=== PATIENT | female | born 1940 | race Hispanic/Latino ===

== ENCOUNTER 2018-10-30 15:11 | Emergency (ER) | payer MEDICARE ==
[~2018-10-30] VITALS: Ht 157.5 cm; Wt 84.8 kg
[~2018-10-30 15:11] MED LIST: ACTONEL35 MG PO; ALPRAZOLAM0.5 MG PO; ASPIR-LOW81 MG PO; BACLOFEN10 MG PO; CITALOPRAM HBR20 MG PO; COLACE100 MG PO; DIOVAN160 MG PO; FERROUS SULFAT325 MG PO; GABAPENTIN300 MG PO; GLIPIZIDE-METF1 EAC2 PO; Insulin Detemir SQ; LANTUS 3ML100 UNITS/ SC; LANTUS 3ML100 UNITS/ SQ; LEVOTHYROXINE112 MCG PO; LORATADINE10 MG PO; LOVENOX40 MG/0.4 SC; LYRICA50 MG PO; OMEPRAZOLE20 M1 PO; PRIMIDONE50 MG PO; SIMVASTATIN10 MG PO; SIMVASTATIN40 MG PO; VITAMIN D10000 UNIT PO
--- OUTSIDE RECORDS SUMMARY | 2018-10-30 15:15 | XMS REPORT | Continuity of Care Document ---
Author Author [facility] Interface Address Unknown Phone Unavailable Problems Problem Status Onset Date Classification Date Reported Comments Source Encounter for screening mammogram for malignant neoplasm of breast 11/12/2017 02/11/2018 JONATHAN Molinaadena Z12.31 - ENCNTR SCREEN MAMMOGRAM FOR MA Active 10/13/2017 JONATHAN Molinaadena M81.0 - AGE-RELATED OSTEOPOROSIS W/O C Active 08/27/2016 JONATHAN Josea Discharge Diagnosis: Atypical chest pain 09/11/2014 09/13/2014 [facility] Discharge Diagnosis: Cough 09/11/2014 09/13/2014 [facility] DIABETIC/BLURRY VISION/CHEST PAIN Active 09/11/2014 [facility] Age-related osteoporosis Active Problem 02/11/2018 JONATHAN Isabel,[facility] BP+ - Hypertension Active Problem 02/11/2018 JONATHAN Isabel,[facility] Comminuted fracture of patella Active Problem 02/11/2018 JONATHAN [place],[facility] DM II [Diabetes mellitus type II] Active Problem 02/11/2018 JONATHAN [place] Hyperlipidemia Active Problem 02/11[facility] Age-related [facility] without current pathological fracture 02/11/2018 NATALYAD [place] Asymptomatic menopausal state 02/11/2018 NATALYAD [place] DM II [Diabetes mellitus type II] Active Problem 09/13/2014 [facility] Medications Medication Details Route Status Patient Instructions Ordering Provider Order Date Source aspirin 325 mg, 1 tab, Route: PO, Drug form: TAB, ONCE, Dosing Weight 71.818, kg, Priority: STAT, Start date: 09/11/14 20:19:00, Stop date: 09/11/14 20:19:00Notes: Take with food. Inactive 09/12/2014 [facility] Saline Flush 0.9% 10 mL, Route: IVP, Drug Form: INJ, Dosing Weight 71.818, kg, PRN, PRN Line Flush, Start date: 09/11/14 19:14:00, Duration: 30 day, Stop date: 10/11/14 19:13:00Notes: (Same as: BD Posiflush) No Longer Active 09/12/2014 [facility] Allergies, Adverse Reactions, Alerts Substance Category Reaction Severity Reaction type Status Date Reported Comments Source penicillins Assertion Drug allergy Active JONATHAN Isabel Immunizations Immunization Date Given Site Status Last Updated Comments Source pneumococcal 23-valent vaccine 07/03/2013 Left deltoid completed Eko [facility] Results Order Name Results Value Reference Range Date Interpretation Comments Source Bone Density DXA [employer] MA Bone Density DXA [employer] MA BONE DENSITY ASSESSMENT: 11/05/2017 CLINICAL DATA: Post menopausal. M81.0 Age-Related Osteoporosis Without Current Pathological Fracture/M81.0 Age-Related Osteoporosis Without Current Pathological Fracture FINDINGS: Bone density evaluation was performed 11/05/2017 on the left femur neck using a Hologic unit. The BMD average for the exam is 0.689 g/cm2. The T-score is -1.40 and the Z-score is 0.50. This matches the World Health Organization's criteria for osteopenia and places the patient at a medium risk for fracture. An additional bone density evaluation was performed 11/05/2017 on the left hip using a Hologic unit. The BMD average for the exam is 0.769 g/cm2. The T-score is -1.40 and the Z-score is 0.40. This matches the World Health Organization's criteria for osteopenia and places the patient at a medium risk for fracture. An additional bone density evaluation was performed 11/05/2017 on the AP L1-L4 region of spine using a Hologic unit. The BMD average for the exam is 0.729 g/cm2. The T-score is -2.90 and the Z-score is -0.40. This matches the World Health Organization's criteria for osteoporosis and places the patient at a high risk for fracture. IMPRESSION: OSTEOPOROSIS Patient is at high risk for fracture. This exam was interpreted at [id number] at [facility]. Edgar Napoles M.D., jp/enriqueta:11/05/2017 13:28:25 Event Decorator And Designer(s): Sintia ALBERTS)(Jojo), [facility] 11/05/2017 - - Read by: Edgar Napoles MD Dictated Date/time: 11/05/17 13:28 Electronically Signed by: Edgar Napoles MD 11/05/17 13:28 FINAL REPORT ADILENE Isabel Breast Mammo Scrn CARLO incl CAD MA Breast Mammo Scrn CARLO incl CAD MA BILATERAL DIGITAL SCREENING MAMMOGRAM WITH CAD: 11/05/2017 CLINICAL: Z12.31 Encounter For Screening Mammogram For Malignant Neoplasm Of Breast/Z12.31 Encounter For Screening Mammogram For Malignant Neoplasm Of Breast. Current study was evaluated with a Computer Aided Detection (CAD) system. COMPARISON:Comparison is made to exams dated: 09/18/2015 mammogram, 06/17/2013 mammogram, and 09/30/2016 mammogram - [facility]. TECHNIQUE: Mammographic views were obtained using digital acquisition. Current study was also evaluated with a Computer Aided Detection (CAD) system. FINDINGS: There are scattered fibroglandular densities in both breasts. No significant masses, calcifications, or other findings are seen in either breast. There has been no significant interval change. IMPRESSION: NEGATIVE RECOMMENDATION:There is no mammographic evidence of malignancy. A 1 year screening mammogram is recommended.(11/06/2018) This exam was interpreted at [id number] at [facility] Location. Professional services are provided by the [facility]. Krystal Suggs M.D. th/penrad:11/05/2017 18:30:05 Event Decorator And Designer(s): RT Saniya(R)(M), [facility] letter sent: BI-RADS 1/2 Mammogram BI-RADS: 1 Negative 11/05/2017 - - Read by: Krystal Suggs MD Dictated Date/time: 11/05/17 18:30 Electronically Signed by: Krystal Suggs MD 11/05/17 18:30 FINAL REPORT ADILENE Isabel Bone Density DXA Dual Energy MA Bone Density DXA Dual Energy MA - Bone Density DXA Dual Energy MA BONE DENSITY EVALUATION: 09/30/2016 CLINICAL DATA: Post menopausal. RISK FACTORS: History of previous fracture. COMPARISON: 09/18/2015 Left hip using a Hologic unit from [facility] with reported medium fracture risk, BMD of 0.756g/cm2, T-score of -1.50 and Z-score of 0.20. 09/18/2015 AP L1-L4 region of spine using a Hologic unit from [facility] with reported high fracture risk, BMD of 0.703g/cm2, T-score of -3.10 and Z-score of -0.80. FINDINGS: Bone density evaluation was performed 09/30/2016 on the AP L1-L4 region of spine using a Hologic unit. The BMD average for the exam is 0.714 g/cm2. The T-score is -3.00 and the Z-score is -0.60. Since the previous similar exam of 09/18/2015, there has been a +0.011 or +1.6% change in the BMD value which represents no significant interval change in bone density. This matches the World Health Organization's criteria for osteoporosis and places the patient at a high risk for fracture. An additional bone density evaluation was performed 09/30/2016 on the left femur neck using a Hologic unit. The BMD average for the exam is 0.688 g/cm2. The T- score is -1.40 and the Z-score is 0.50. This matches the World Health Organization's criteria for osteopenia and places the patient at a medium risk for fracture. An additional bone density evaluation was performed 09/30/2016 on the left hip using a Hologic unit. The BMD average for the exam is 0.776 g/cm2. The T-score is -1.40 and the Z-score is 0.40. Since the previous similar exam of 09/18/2015, there has been a +0.020 or +2.6% change in the BMD value which represents no significant interval change in bone density. This matches the World Health Organization's criteria for osteopenia and places the patient at a medium risk for fracture. IMPRESSION: OSTEOPOROSIS Patient is at high risk for fracture. Professional services are provided by the [facility]. This exam was dictated and interpreted by [id number] for [facility]. Rajesh Robbins M.D., cm/enriqueta:10/01/2016 13:36:48 Event Decorator And Designer: Sintia ALBERTS)(M), [facility] 09/30/2016 - - Read by: Edi Tsang MD Dictated Date/time: 10/01/16 13:36 Electronically Signed by: Edi Tsang MD 10/01/16 13:36 FINAL REPORT ADILENE HOANGAlba Maame Breast Mammo Scrn CARLO incl CAD MA Breast Mammo Scrn CARLO incl CAD MA - BREAST MAMMO SCRN CARLO INCL CAD MA BILATERAL DIGITAL SCREENING MAMMOGRAM WITH CAD: 09/30/2016 CLINICAL: Routine. Current study was evaluated with a Computer Aided Detection (CAD) system. Comparison is made to exams dated: 09/18/2015 mammogram and 06/17/2013 mammogram - [facility]. There are scattered fibroglandular densities in both breasts. There are benign vascular calcifications in both breasts. No significant masses, calcifications, or other findings are seen in either breast. There has been no significant interval change. IMPRESSION: BENIGN There is no mammographic evidence of malignancy. A 1 year screening mammogram is recommended. Professional services are provided by the [facility]. Rajesh Robbins M.D. cm/pensalina:09/30/2016 12:28:41 Event Decorator And Designer: Richelle MCGREGOR(Ilya)(Jojo), [facility] This exam was dictated and interpreted by [id number] for DIANA Montalvo. letter sent: Normal exam Mammogram BI-RADS: 2 Benign 09/30/2016 - - Read by: Edi Tsang MD Dictated Date/time: 09/30/16 12:28 Electronically Signed by: Edi Tsang MD 09/30/16 12:28 FINAL REPORT ADILENE Isabel Bone Density DXA Dual Energy MA Bone Density DXA Dual Energy MA - Bone Density DXA Dual Energy MA BONE DENSITY EVALUATION: 09/18/2015 CLINICAL DATA: Post menopausal and clinical risk for osteoporosis. FINDINGS: Bone density evaluation was performed 09/18/2015 on the AP L1-L4 region of spine using a Hologic unit. The BMD average for the exam is 0.703 g/cm2. The T-score is -3.10 and the Z-score is -0.80. This matches the World Health Organization's criteria for osteoporosis and places the patient at a high risk for fracture. An additional bone density evaluation was performed 09/18/2015 on the right femur neck using a Hologic unit. The BMD average for the exam is 0.641 g/cm2. The T-score is -1.90. This matches the World Health Organization's criteria for osteopenia and places the patient at a medium risk for fracture. An additional bone density evaluation was performed 09/18/2015 on the right hip using a Hologic unit. The BMD average for the exam is 0.661 g/cm2. The T-score is -2.30 and the Z-score is -0.50. This matches the World Health Organization's criteria for osteopenia and places the patient at a medium risk for fracture. An additional bone density evaluation was performed 09/18/2015 on the left femur neck using a Hologic unit. The BMD average for the exam is 0.709 g/cm2. The T- score is -1.30 and the Z-score is 0.60. This matches the World Health Organization's criteria for osteopenia and places the patient at a medium risk for fracture. An additional bone density evaluation was performed 09/18/2015 on the left hip using a Hologic unit. The BMD average for the exam is 0.756 g/cm2. The T-score is -1.50 and the Z-score is 0.20. This matches the World Health Organization's criteria for osteopenia and places the patient at a medium risk for fracture. IMPRESSION: OSTEOPOROSIS Patient is at high risk for fracture. This exam was dictated and interpreted by [id number] for ADILENE Isabel. Maru Rajan M.D. ms/penrad:09/18/2015 10:42:28 Event Decorator And Designer: Sintia MCGREGOR(R)(M), [facility] 09/18/2015 - - Read by: Maru Rajan MD Dictated Date/time: 09/18/15 10:42 Electronically Signed by: Maru Rajan MD 09/18/15 10:42 FINAL REPORT JONATHAN [facility] Digital Mammo Screening Carlo MA Digital Mammo Screening Carlo MA - DIGITAL MAMMO SCREENING CARLO MA BILATERAL DIGITAL SCREENING MAMMOGRAM WITH CAD: 09/18/2015 CLINICAL: Z12.31 Encounter For Screening Mammogram For Malignant Neoplasm Of Breast. Current study was evaluated with a Computer Aided Detection (CAD) system. Comparison is made to exam dated: 06/17/2013 mammogram - [facility]. There are scattered fibroglandular densities in both breasts. No significant masses, calcifications, or other findings are seen in either breast. There has been no significant interval change. IMPRESSION: NEGATIVE There is no mammographic evidence of malignancy. A 1 year screening mammogram is recommended. Krystal Suggs M.D. th/penrad:09/18/2015 10:44:03 Event Decorator And Designer: Richelle Gutiérrez, [facility] This exam was dictated and interpreted by [id number] at [facility] Location. letter sent: Normal exam Mammogram BI-RADS: 1 Negative 09/18/2015 - - Read by: Krystal Suggs MD Dictated Date/time: 09/18/15 10:44 Electronically Signed by: Krystal Suggs MD 09/18/15 10:44 FINAL REPORT [facility] CARDIAC ENZYMES Troponin-I null 0.00 - 0.40 09/12/2014 [facility] CARDIAC ENZYMES BNP 39 pg/mL <=100 pg/mL 09/12/2014 3Interpretive Data: Elevated results are in line with increasing severity of congestive heart failure. Minor elevations between 100 and 300 may be seen with Myocardial Ischemia, Sodium retaining drugs, and compensated/treated heart failure. [facility] CARDIAC ENZYMES CK MB 1.7 ng/mL 0.5 - 3.6 09/12/2014 [facility] CARDIAC ENZYMES Total CK 59 unit/L 12 - 191 09/12/2014 [facility] CARDIAC ENZYMES CK MB Index 2.9 0.0 - 2.5 09/12/2014 [facility] CARDIAC ENZYMES Total CK 49 unit/L 12 - 191 09/12/2014 [facility] CARDIAC ENZYMES CK MB 1.8 ng/mL 0.5 - 3.6 09/12/2014 [facility] CARDIAC ENZYMES Troponin-I null 0.00 - 0.40 09/12/2014 [facility] CARDIAC ENZYMES CK MB Index 3.7 0.0 - 2.5 09/12/2014 [facility] CHEM PANEL Magnesium Lvl 1.8 mg/dL 1.8 - 2.4 09/12/2014 [facility] CHEM PANEL eGFR 87 mL/min/1.73m2 09/12/2014 1Result Comment: The eGFR is calculated using the CKD-EPI formula. In most young, healthy individuals the eGFR will be >90 mL/min/1.73m2. The eGFR declines with age. An eGFR of 60-89 may be normal in some populations, particularly the elderly, for whom the CKD-EPI formula has not been extensively validated. Use of the eGFR is not recommended in the following populations: Individuals with unstable creatinine concentrations, including patients and those with serious co-morbid conditions. Patients with extremes in muscle mass or diet. The data above are obtained from the National Kidney Disease Education Program (NKDEP) which additionally recommends that when the eGFR is used in patients with extremes of body mass index for purposes of drug dosing, the eGFR should be multiplied by the estimated BMI. [facility] CHEM PANEL Potassium Lvl 3.5 meq/L 3.5 - 5.1 09/12/2014 [facility] CHEM PANEL Chloride Lvl 102 meq/L 95 - 109 09/12/2014 [facility] CHEM PANEL Sodium Lvl 137 meq/L 135 - 145 09/12/2014 [facility] CHEM PANEL Creatinine Lvl 0.7 mg/dL 0.5 - 1.4 09/12/2014 [facility] CHEM PANEL Albumin Lvl 3.6 g/dL 3.5 - 5.0 09/12/2014 [facility] CHEM PANEL Calcium Lvl 8.7 mg/dL 8.5 - 10.5 09/12/2014 [facility] CHEM PANEL AGAP 10.5 meq/L 10.0 - 20.0 09/12/2014 [facility] CHEM PANEL B/C Ratio 17 6 - 25 09/12/2014 [facility] CHEM PANEL Bili Total 0.2 mg/dL 0.2 - 1.3 09/12/2014 [facility] CHEM PANEL A/G Ratio 0.9 0.7 - 1.6 09/12/2014 [facility] CHEM PANEL Globulin 3.8 g/dL 2.0 - 4.0 09/12/2014 [facility] CHEM PANEL Glucose Lvl 239 mg/dL 70 - 99 09/12/2014 2Interpretive Data: Adult reference range values reflect the clinical guidelines of the [place] [employer]. [facility] CHEM PANEL Total Protein 7.4 g/dL 6.4 - 8.4 09/12/2014 [facility] CHEM PANEL CO2 28 meq/L 24 - 32 09/12/2014 [facility] CHEM PANEL BUN 12 mg/dL 7 - 22 09/12/2014 [facility] CHEM PANEL ALT 18 unit/L 0 - 65 09/12/2014 [facility] CHEM PANEL AST 9 unit/L 0 - 37 09/12/2014 [facility] CHEM PANEL Alk Phos 98 unit/L 39 - 136 09/12/2014 [facility] INR 0.95 0.85 - 1.17 09/12/2014 4Interpretive Data: RECOMMENDED RANGES FOR PROTIME INR: 2.0-3.0 for most medical and surgical thromboembolic states. 2.5-3.5 for artificial heart valves and recurrent embolism. INR SHOULD BE USED ONLY FOR PATIENTS ON STABLE ANTICOAGULANT THERAPY. [facility] PTT 30.5 s 22.9 - 35.8 09/12/2014 5Interpretive Data: Heparin Therapeutic Range: 57 - 92 Seconds [facility] PT 12.7 s 12.0 - 14.7 09/12/2014 [facility] Platelet 231 K/CMM 133 - 450 09/12/2014 [facility] RDW 17.6 % 11.5 - 14.5 09/12/2014 [facility] MPV 8.5 fL 7.4 - 10.4 09/12/2014 [facility] MCHC 31.6 g/dL 32.0 - 36.0 09/12/2014 [facility] MCH 24.0 pg 27.0 - 31.0 09/12/2014 [facility] Hct 36.7 % 36.0 - 48.0 09/12/2014 [facility] Hgb 11.6 g/dL 12.0 - 16.0 09/12/2014 [facility] RBC 4.84 M/CMM 4.20 - 5.40 09/12/2014 [facility] WBC 5.8 K/CMM 3.7 - 10.4 09/12/2014 [facility] MCV 75.8 fL 80.0 - 98.0 09/12/2014 [facility] Lymphocytes # 1.9 K/CMM 1.0 - 5.5 09/12/2014 [facility] Monocytes # 0.3 K/CMM 0.0 - 0.8 09/12/2014 [facility] Segs-Bands # 3.5 K/CMM 1.5 - 8.1 09/12/2014 [facility] Basophils # 0.1 K/CMM 0.0 - 0.2 09/12/2014 [facility] Eosinophils # 0.1 K/CMM 0.0 - 0.5 09/12/2014 [facility] HEMATOLOGY Microcyte 1+ *ABN* (09/11/14 7:38 PM) None Seen 09/12/2014 [facility] HEMATOLOGY Monocytes 5.4 % 2.0 - 12.0 09/12/2014 [facility] HEMATOLOGY Lymphocytes 32.7 % 20.0 - 40.0 09/12/2014 [facility] HEMATOLOGY Segs 59.6 % 45.0 - 75.0 09/12/2014 [facility] HEMATOLOGY Basophils 1.0 % 0.0 - 1.0 09/12/2014 [facility] HEMATOLOGY Eosinophils 1.3 % 0.0 - 4.0 09/12/2014 [facility] URINE AND STOOL UA Color Ltyellow 09/12/2014 [facility] URINE AND STOOL UA Urobilinogen <=1.0 mg/dL 0.1 - 1.0 09/12/2014 [facility] URINE AND STOOL UA WBC 4 /HPF 0 - 5 09/12/2014 [facility] URINE AND STOOL UA Sq Epi Occasional /LPF Few /LPF 09/12/2014 [facility] URINE AND STOOL UA Leuk Est Negative (09/11/14 6:38 PM) Negative 09/12/2014 [facility] URINE AND STOOL UA pH 6.0 5.0 - 8.0 09/12/2014 [facility] URINE AND STOOL UA Turbidity Clear (09/11/14 6:38 PM) Clear 09/12/2014 [facility] URINE AND STOOL UA Spec Grav 1.006 <=1.030 09/12/2014 [facility] URINE AND STOOL UA Glucose 500 mg/dL Negative mg/dL 09/12/2014 [facility] URINE AND STOOL UA Ketones Negative mg/dL Negative mg/dL 09/12/2014 [facility] URINE AND STOOL UA Protein Negative mg/dL Negative mg/dL 09/12/2014 [facility] URINE AND STOOL UA Nitrite Negative (09/11/14 6:38 PM) Negative 09/12/2014 [facility] URINE AND STOOL UA Blood Negative (09/11/14 6:38 PM) Negative 09/12/2014 [facility] URINE AND STOOL UA Bili Negative *NA* (09/11/14 6:38 PM) Negative 09/12/2014 [facility] Vital Signs Vital Sign Value Date Comments Source Diastolic (mm Hg) 50 09/12/2014 [facility] Temperature Oral (F) 98.5 F 09/12/2014 [facility] Respitory Rate 16 09/12/2014 [facility] Systolic (mm Hg) 148 09/12/2014 [facility] Systolic (mm Hg) 171 09/12/2014 [facility] Diastolic (mm Hg) 70 09/12/2014 [facility] Respitory Rate 14 09/12/2014 [facility] Systolic (mm Hg) 166 09/12/2014 [facility] Diastolic (mm Hg) 55 09/12/2014 [facility] Respitory Rate 11 09/12/2014 [facility] Heart Rate 68 09/12/2014 [facility] Temperature Oral (F) 98.8 F 09/11/2014 [facility] Heart Rate 78 09/11/2014 [facility] BMI Calculated 28.96 09/11/2014 [facility] Height 157.48 cm 09/11/2014 [facility] Weight 71.818 09/11/2014 [facility] Encounters Location Location Details Encounter Type Encounter Number Reason For Visit Attending Provider ADM Date DC Date Status Source [facility] [id number] Ayush Thao 09/11/2014 09/12/2014 [facility] [place] [facility] [id number] Oscar Sorenson 09/18/2015 09/19/2015 [facility] [place] [facility] [place] [facility] [id number] Oscar Sorenson 09/30/2016 10/01/2016 [facility] [place] [facility] [place] [facility] [id number] Oscar Sorenson 11/05/2017 11/06/2017 [facility] [place] Procedures Procedure Code Date Perfomer Comments Source Angioplasty [id number] [facility] [place] Appendectomy [id number] [facility] [place] Hysterectomy [id number] [facility] [place] Repair of knee joint [id number] [facility] [place] Repair of knee joint [id number] [facility]
--- OUTSIDE RECORDS SUMMARY | 2018-10-30 15:16 | XMS REPORT | Summary of Care ---
Author Author [facility] [place] Organization [facility] [place] Address Unknown Phone Unavailable Encounter HQ Kunal_rafat(FIN) [id number] Date(s): 09/30/16 - 09/30/16 [facility] [place] [address] [place] [address]- [phone] Discharge Disposition: Home or Self Care Attending Physician: Oscar Sorenson MD Vital Signs No data available for this section Problem List Condition Effective Dates Status Health Status Informant Age-related Active osteoporosis(Confirm ed) BP+ - Active Hypertension(Confirm ed) Comminuted fracture Active of patella(Confirmed) DM II [Diabetes Active mellitus type II](Confirmed) Hyperlipidemia(Confi Active rmed) Allergies, Adverse Reactions, Alerts Substance Reaction Severity Status penicillins Active Medications No data available for this section Results No data available for this section Immunizations Given and Recorded Vaccine Date Status Refusal Reason pneumococcal 23-valent vaccine 07/03/13 Given Procedures Procedure Date Related Diagnosis Body Site Angioplasty Appendectomy Hysterectomy Repair of knee joint Social History Social History Type Response Substance Abuse Use: None. Alcohol Never Smoking Status Never smoker; Exposure to Tobacco Smoke None; Cigarette Smoking Last 365 Days No; Reg Smoking Cessation Counseling No Assessment and Plan No data available for this section
--- OUTSIDE RECORDS SUMMARY | 2018-10-30 15:16 | XMS REPORT | Summary of Care ---
Author Organization Unknown Address Unknown Phone Unavailable Encounter JHON Richards(PARESH) [id number] Date(s): 09/11/14 - 09/11/14 [facility] [address] [address] Discharge Diagnosis: Atypical chest pain Discharge Diagnosis: Cough Discharge Disposition: Home Physician Attending: Ayush Thao MD Reason for Visit DIABETIC/BLURRY VISION/CHEST PAIN Vital Signs 1 2 3 Most recent to oldest [Reference Range]: 157.48 cm (09/11/14 5:51 PM) Height 98.5 DegF (09/11/14 10:13 PM) 98.8 DegF (09/11/14 5:51 PM) Temperature Oral [96.4-99.1 DegF] 148 mmHg *HI* (09/11/14 10:13 PM) 171 mmHg *HI* (09/11/14 9:22 PM) 166 mmHg *HI* (09/11/14 8:15 PM) Systolic Blood Pressure [90-140 mmHg] 50 mmHg *LOW* (09/11/14 10:13 PM) 70 mmHg (09/11/14 9:22 PM) 55 mmHg *LOW* (09/11/14 8:15 PM) Diastolic Blood Pressure [60-90 mmHg] 16 BRMIN (09/11/14 10:13 PM) 14 BRMIN (09/11/14 9:22 PM) 11 BRMIN *LOW* (09/11/14 8:15 PM) Respiratory Rate [14-20 BRMIN] 68 bpm (09/11/14 7:19 PM) 78 bpm (09/11/14 5:51 PM) Peripheral Pulse Rate [60-100 bpm] 71.818 kg (09/11/14 5:51 PM) Weight 28.96 m2 (09/11/14 5:51 PM) Body Mass Index Problem List Condition Effective Dates Status Health Status Informant Age-related Active osteoporosis(Confirm ed) BP+ - Active Hypertension(Confirm ed) Comminuted fracture Active of patella(Confirmed) DM II [Diabetes Active mellitus type II](Confirmed) Hyperlipidemia(Confi Active rmed) Allergies, Adverse Reactions, Alerts Substance Reaction Severity Status penicillins Active Medications aspirin 325 mg, 1 tab, Route: PO, Drug form: TAB, ONCE, Dosing Weight 71.818, kg, Priori ty: STAT, Start date: 09/11/14 20:19:00, Stop date: 09/11/14 20:19:00 Notes: Take with food. Start Date: 09/11/14 Stop Date: 09/11/14 Status: Completed Saline Flush 0.9% 10 mL, Route: IVP, Drug Form: INJ, Dosing Weight 71.818, kg, PRN, PRN Line Flush , Start date: 09/11/14 19:14:00, Duration: 30 day, Stop date: 10/11/14 19:13:00 Notes: (Same as: BD Posiflush) Start Date: 09/11/14 Stop Date: 09/12/14 Status: Discontinued Results ELECTROLYTES Most recent to 1 2 oldest [Reference Range]: Sodium Lvl [135-145 137 mEq/L mEq/L] (09/11/14 7:38 PM) Potassium Lvl 3.5 mEq/L [3.5-5.1 mEq/L] (09/11/14 7:38 PM) Chloride Lvl [95-109 102 mEq/L mEq/L] (09/11/14 7:38 PM) CO2 [24-32 mEq/L] 28 mEq/L (09/11/14 7:38 PM) AGAP [10.0-20.0 10.5 mEq/L mEq/L] (09/11/14 7:38 PM) CHEM PANEL Most recent to 1 2 oldest [Reference Range]: Creatinine Lvl 0.7 mg/dL [0.5-1.4 mg/dL] (09/11/14 7:38 PM) eGFR 87 mL/min/1.73m2 1 *NA* (09/11/14 7:38 PM) BUN [7-22 mg/dL] 12 mg/dL (09/11/14 7:38 PM) B/C Ratio [6-25] 17 (09/11/14 7:38 PM) Glucose Lvl [70-99 239 mg/dL 2 mg/dL] *HI* (09/11/14 7:38 PM) Total Protein 7.4 g/dL [6.4-8.4 g/dL] (09/11/14 7:38 PM) Albumin Lvl [3.5-5.0 3.6 g/dL g/dL] (09/11/14 7:38 PM) Globulin [2.0-4.0 3.8 g/dL g/dL] (09/11/14 7:38 PM) A/G Ratio [0.7-1.6] 0.9 (09/11/14 7:38 PM) Calcium Lvl 8.7 mg/dL [8.5-10.5 mg/dL] (09/11/14 7:38 PM) Magnesium Lvl 1.8 mg/dL [1.8-2.4 mg/dL] (09/11/14 7:38 PM) ALT [0-65 unit/L] 18 unit/L (09/11/14 7:38 PM) AST [0-37 unit/L] 9 unit/L (09/11/14 7:38 PM) Alk Phos [39-136 98 unit/L unit/L] (09/11/14 7:38 PM) Bili Total [0.2-1.3 0.2 mg/dL mg/dL] (09/11/14 7:38 PM) 1Result Comment: The eGFR is calculated using [...] from the National Kidney Disease Education Program ( NKDEP) which additionally recommends that when the eGFR is used in patients with extremes of body mass index for purposes of drug dosing, the eGFR should be mul tiplied by the estimated BMI. 2Interpretive Data: Adult reference range values reflect the clinical guidelines of the [place] [employer]. CARDIAC ENZYMES Most recent to 1 2 oldest [Reference Range]: Total CK [12-191 59 unit/L 49 unit/L unit/L] (09/11/14 8:53 PM) (09/11/14 7:38 PM) CK MB [0.5-3.6 1.7 ng/mL 1.8 ng/mL ng/mL] (09/11/14 8:53 PM) (09/11/14 7:38 PM) CK MB Index 2.9 3.7 [0.0-2.5] *HI* *HI* (09/11/14 8:53 PM) (09/11/14 7:38 PM) Troponin-I <0.02 ng/mL <0.02 ng/mL [0.00-0.40 ng/mL] (09/11/14 8:53 PM) (09/11/14 7:38 PM) BNP [<=100 pg/mL] 39 pg/mL 3 (09/11/14 8:53 PM) 3Interpretive Data: Elevated results are in line with increasing severity of congestive heart failure. Minor elevations between 100 and 300 may be seen with Myocardial Ischemia, Sodium retaining drugs, and compensated/treated heart failure. URINE AND STOOL Most recent to 1 2 oldest [Reference Range]: UA Turbidity [Clear] Clear (09/11/14 6:38 PM) UA Color Ltyellow *NA* (09/11/14 6:38 PM) UA pH [5.0-8.0] 6.0 (09/11/14 6:38 PM) UA Spec Grav 1.006 [<=1.030] (09/11/14 6:38 PM) UA Glucose [Negative 500 mg/dL mg/dL] *ABN* (09/11/14 6:38 PM) UA Blood [Negative] Negative (09/11/14 6:38 PM) UA Ketones [Negative Negative mg/dL mg/dL] *NA* (09/11/14 6:38 PM) UA Protein [Negative Negative mg/dL mg/dL] (09/11/14 6:38 PM) UA Urobilinogen <=1.0 mg/dL [0.1-1.0 mg/dL] *NA* (09/11/14 6:38 PM) UA Bili [Negative] Negative *NA* (09/11/14 6:38 PM) UA Leuk Est Negative [Negative] (09/11/14 6:38 PM) UA Nitrite Negative [Negative] (09/11/14 6:38 PM) UA WBC [0-5 /HPF] 4 /HPF (09/11/14 6:38 PM) UA Sq Epi [Few /LPF] Occasional /LPF *NA* (09/11/14 6:38 PM) HEMATOLOGY Most recent to 1 2 oldest [Reference Range]: WBC [3.7-10.4 K/CMM] 5.8 K/CMM (09/11/14 7:38 PM) RBC [4.20-5.40 4.84 M/CMM M/CMM] (09/11/14 7:38 PM) Hgb [12.0-16.0 g/dL] 11.6 g/dL *LOW* (09/11/14 7:38 PM) Hct [36.0-48.0 %] 36.7 % (09/11/14 7:38 PM) MCV [80.0-98.0 fL] 75.8 fL *LOW* (09/11/14 7:38 PM) MCH [27.0-31.0 pg] 24.0 pg *LOW* (09/11/14 7:38 PM) MCHC [32.0-36.0 31.6 g/dL g/dL] *LOW* (09/11/14 7:38 PM) RDW [11.5-14.5 %] 17.6 % *HI* (09/11/14 7:38 PM) Platelet [133-450 231 K/CMM K/CMM] (09/11/14 7:38 PM) MPV [7.4-10.4 fL] 8.5 fL (09/11/14 7:38 PM) Segs [45.0-75.0 %] 59.6 % (09/11/14 7:38 PM) Lymphocytes 32.7 % [20.0-40.0 %] (09/11/14 7:38 PM) Monocytes [2.0-12.0 5.4 % %] (09/11/14 7:38 PM) Eosinophils [0.0-4.0 1.3 % %] (09/11/14 7:38 PM) Basophils [0.0-1.0 1.0 % %] (09/11/14 7:38 PM) Segs-Bands # 3.5 K/CMM [1.5-8.1 K/CMM] (09/11/14 7:38 PM) Lymphocytes # 1.9 K/CMM [1.0-5.5 K/CMM] (09/11/14 7:38 PM) Monocytes # [0.0-0.8 0.3 K/CMM K/CMM] (09/11/14 7:38 PM) Eosinophils # 0.1 K/CMM [0.0-0.5 K/CMM] (09/11/14 7:38 PM) Basophils # [0.0-0.2 0.1 K/CMM K/CMM] (09/11/14 7:38 PM) Microcyte [None 1+ Seen] *ABN* (09/11/14 7:38 PM) PT [12.0-14.7 12.7 seconds seconds] (09/11/14 7:38 PM) INR [0.85-1.17] 0.95 4 (09/11/14 7:38 PM) PTT [22.9-35.8 30.5 seconds 5 seconds] (09/11/14 7:38 PM) 4Interpretive Data: RECOMMENDED RANGES FOR PROTIME INR: 2.0-3.0 for most medical and surgical thromboembolic states. 2.5-3.5 for artificial heart valves and recurrent embolism. INR SHOULD BE USED ONLY FOR PATIENTS ON STABLE ANTICOAGULANT THERAPY. 5Interpretive Data: Heparin Therapeutic Range: 57 - 92 Seconds Medications Administered During Your Visit No data available for this section Immunizations Vaccine Date Refusal Reason pneumococcal 23-valent vaccine 07/03/13 Procedures Procedure Type Body Site Date of Procedure Related Diagnosis Repair of knee joint Social History Social History Type Response Substance Abuse Use: None Alcohol Use: Never Smoking Status Never smoker, Exposure to Tobacco Smoke None, Cigarette Smoking Last 365 Days No, Reg Smoking Cessation Counseling No
--- OUTSIDE RECORDS SUMMARY | 2018-10-30 15:16 | XMS REPORT | Summary of Care ---
Author Author [facility] [place] Organization [facility] [place] Address Unknown Phone Unavailable Encounter HQ Susie(FIN) [id number] Date(s): 11/05/17 - 11/05/17 [facility] [place] [address] [place] [phone] Encounter Diagnosis Encounter for screening mammogram for malignant neoplasm of breast (Final) - 11/11/17 Age-related osteoporosis without current pathological fracture (Final) - Asymptomatic menopausal state (Final) - Discharge Disposition: Home or Self Care Attending [...] Procedures Procedure Date Related Diagnosis Body Site Status Angioplasty Completed Appendectomy Completed Hysterectomy Completed Repair of knee joint Completed Social History Social History Type Response Substance Abuse Use: None. Alcohol Never Smoking Status Never smoker; Exposure to Tobacco Smoke None; Cigarette Smoking Last 365 Days No; Reg Smoking Cessation Counseling No entered on: 09/11/14 Assessment and Plan No data available for this section
--- OUTSIDE RECORDS SUMMARY | 2018-10-30 15:16 | XMS REPORT | Summary of Care ---
Author Author [facility] [place] Organization [facility] [place] Address Unknown Phone Unavailable Encounter HQ Kunal_rafat(FIN) [id number] Date(s): 09/18/15 - 09/18/15 [facility] [place] [address] [place], [place] [address] [phone] Discharge Disposition: Home Attending Physician: Oscar Sorenson MD Vital Signs [...] Reason pneumococcal 23-valent vaccine 07/03/13 Procedures Procedure Date Related Diagnosis Body Site Angioplasty Appendectomy Hysterectomy Repair of knee joint Social History Social History Type Response Substance Abuse Use: None. Alcohol Never Smoking Status Never smoker; Exposure to Tobacco Smoke None; Cigarette Smoking Last 365 Days No; Reg Smoking Cessation Counseling No Assessment and Plan No data available for this section
--- OUTSIDE RECORDS SUMMARY | 2018-10-30 15:16 | XMS REPORT ---
Author Author [facility] Address Unknown Phone Unavailable Care Team Providers Care Apparel Stock Checker Name Role Phone Alba HUMPHREY Unavailable Unavailable Problems This patient has no known problems. Allergies, Adverse Reactions, Alerts This patient has no known allergies or adverse reactions. Medications This patient has no known medications. Results Test Description Test Time Test Comments Text Results Atomic Results Result Comments CT MAXIO FAC/PARANAS WO [place] [address] Patient Name: AVANI ZIEGLER MR #: [id number] : 1940 Age/Sex: 76/F Req #: [id number] [facility] Physician: Ordered by: TIERRA HUMPHREY MD Report #: [id number] Location: ER Room/Bed: Procedure: [id number] CT/CT MAXIO FAC/PARANAS WO Exam Date: 07/21/17 Exam Time: 1924 REPORT STATUS: Signed Exams: Head and maxillofacial CTs without IV contrast History: Trauma, fall Comparison studies: Head CT 10/25/2015 and 02/09/2015 Technique: Axial images were obtained to the vertex and maxillofacial region. Coronal and sagittal images reconstructed from the axial data. Intravenous contrast: None Findings: Scalp: No abnormalities. Bones: No fractures, blastic or lytic lesions. Brain sulci: Appropriate for age. Ventricles: Mild compensatory dilatation. No hydrocephalus. Extra-axial spaces: Unchanged densely calcified 2.6 x 2.7 x 2.5 cm (SI x AP x TV) extra- axial mass along the right frontal convexity with associated mild focal hyperostosis along the inner table of the right frontal calvarium which exerts local mass effect on the right paramedian frontal lobe. There is questionable mild hypodense changes/edema within the underlying brain parenchyma. Parenchyma: No mass, acute hemorrhage or acute cortical vascular insults. Chronic lacunar insult in the left cerebellum and a few scattered hypodensities in the supratentorial white matter which most likely represent chronic small vessel ischemic changes are unchanged. Sellar/suprasellar region: No abnormalities Craniocervical junction: Patent foramen magnum. No Chiari one malformation. Maxillofacial CT: Soft tissues: Mild left supraorbital soft tissue swelling. Bones: No fractures or bony abnorm alities. Orbits: Globes: Intact. There are bilateral lens replacements. Extra or intraconal abnormalities: None. Paranasal sinuses: Clear Incidental findings: Calcified atherosclerosis in the cervical carotid bulbs and carotid siphons. Partially imaged surgical clips in the right carotid space. Moderate facet arthrosis on the right from C2 to C6. Mild right C3-C4 foraminal stenosis due to uncovertebral and facet arthrosis. Unchanged 8 mm bone island in the C2 vertebral body. IMPRESSION: Head CT: 1. No acute abnormalities. 2. No changes from the previous head CT of 02/09/2015. 3. 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 Mild generalized volume loss and chronic microvascular ischemic changes. Maxillofacial CT: 1. Focal left lateral supraorbital soft tissue swelling. 2. No maxillofacial fracture. Signed by: Dr. Laisha Goode M.D. on 07/21 7:52 PM Dictated By: LAISHA GOODE MD 51 Transcribed By: NESS on 07/21/171951 COPY TO: TIERRA HUMPHREY MD CT BRAIN WO [place] [address] Patient Name: AVANI ZIEGLER MR #: [id number] : 1940 Age/Sex: 76/F Req #: [id number] [facility] Physician: Ordered by: TIERRA HUMPHREY MD Report #: [id number] Location: ER Room/Bed: Procedure: [id number] CT/CT BRAIN WO Exam Date: 07/21/17 Exam Time: 1924 REPORT STATUS: Signed Exams: Head and maxillofacial CTs without IV contrast History: Trauma, fall Comparison studies: Head CT 10/25/2015 and 02/09/2015 Technique: Axial images were obtained to the vertex and maxillofacial region. Coronal and sagittal images reconstructed from the axial data. Intravenous contrast: None Findings: Scalp: No abnormalities. Bones: No fractures, blastic or lytic lesions. Brain sulci: Appropriate for age. Ventricles: Mild compensatory dilatation. No hydrocephalus. Extra-axial spaces: Unchanged densely calcified 2.6 x 2.7 x 2.5 cm (SI x AP x TV) extra-axial mass along the right frontal convexity with associated mild focal hyperostosis along the inner table of the right frontal calvarium which exerts local mass effect on the right paramedian frontal lobe. There is questionable mild hypodense demarco ges/edema within the underlying brain parenchyma. Parenchyma: No mass, acute hemorrhage or acute cortical vascular insults. Chronic lacunar insult in the left cerebellum and a few scattered hypodensities in the supratentorial white matter which most likely represent chronic small vessel ischemic changes are unchanged. Sellar/suprasellar region: No abnormalities Craniocervical junction: Patent foramen magnum. No Chiari one malformation. Maxillofacial CT: Soft tissues: Mild left supraorbital soft tissue swelling. Bones: No fractures or bony abnormalities. Orbits: Globes: Intact. There are bilateral lens replacements. Extra or intraconal abnormalities: None. Paranasal sinuses: Clear Incidental findings: Calcified atherosclerosis in the cervical carotid bulbs and carotid siphons. Partially imaged surgical clips in the right carotid space. Moderate facet arthrosis on the right from C2 to C6. Mild right C3-C4 foraminal stenosis due to uncovertebral and facet arthrosis. Unchanged 8 mm bone island in the C2 vertebral body. IMPRESSION: Head CT: 1. No acute abnormalities. 2. No changes from the previous head CT of 02/09/2015. 3. 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 Mild generalized volume loss and chronic fab rovascular ischemic changes. Maxillofacial CT: 1. Focal left lateral supraorbital soft tissue swelling. 2. No maxillofacial fracture. Signed by: Dr. Laisha Goode M.D. on 07/21/2017 7:52 PM Dictated By: LAISHA GOODE MD 51 Transcribed By: NESS on 07/21/171951 COPY TO: TIERRA HUMPHREY MD HIP LEFT 2-3 VW (+/- PELVIS) [place] [address] Patient Name: AVNAI ZIEGLER MR #: [id number] : 1940 Age/Sex: 76/F Req #: [id number] [facility] Physician: Ordered by: TIERRA HUMPHREY MD Report #: [id number] Location: ER Room/Bed: Procedure: [id number] DX/HIP LEFT 2-3 VW (+/- PELVIS) Exam Date: Exam Time: REPORT STATUS: Signed EXAMINATION: HIP LEFT 2-3 VW (+/- PELVIS) 07/21/2017 7:02 PM COMPARISON: None INDICATION: Fall DISCUSSION: 2 views of the left hip (AP and lateral) One additional AP view of the pelvis. There is a medullary marcy and screw device in the right proximal femur. There are mild degenerative changes of the hips, pubic symphysis, and sacroiliac joints. No fracture or dislocation. No fracture or dislocation. Joint spaces are maintained. Soft tissues are unremarkable IMPRESSION: No acute radiographic abnormality of the pelvis or left hip. Cedrick Mitchell MD Signed by: Dr. Cedrick Mitchell M.D. on 07/21/2017 8:01 PM Dictated By: CEDRICK MITCHELL MD 00 Transcribed By: NESS on 07/21/172000 COPY TO: TIERRA HUMPHREY MD SHOULDER LEFT COMPLETE [place] [address] Patient Name: AVANI ZIEGLER MR #: [id number] : 1940 Age/Sex: 76/F Req #: [id number] [facility] Physician: Ordered by: TIERRA HUMPHREY MD Report #: [id number] Location: ER Room/Bed: Procedure: [id number] DX/SHOULDER LEFT COMPLETE Exam Date: 07/21/17 Exam Time: 1916 REPORT STATUS: Signed EXAMINATION: SHOULDER LEFT COMPLETE 07/21/2017 7:02 PM COMPARISON: None INDICATION: Fall DISCUSSION: 2 views of the left shoulder (AP internal and external rotation No fracture or dislocation. Degenerative changes at the glenohumeral and acromioclavicular joint. Elevation of the left humeral head suggests chronic rotator cuff tear. Soft tissues are unremarkable IMPRESSION: No acute radiographic abnormality of the left shoulder Cedrick Mitchell MD Signed by: Jessika HuynhD. on 07/21/2017 8:02 PM Dictated By: CEDRICK MITCHELL MD 01 Transcribed By: NESS on 07/21/172001 COPY TO: TIERRA HUMPHREY MD
[2018-10-30 17:21] VITALS: BP 152/78
--- NOTE | 2018-10-30 17:42 | Diagnostic Imaging Report ---
EXAMINATION: RIBS UNILAT W/CXR- HOPD INDICATION: Left-sided chest wall pain. Fall. COMPARISON: None FINDINGS: TUBES and LINES: None. LUNGS: Lungs are well inflated. Lungs are clear. There is mild prominence of the central pulmonary vasculature, consistent with pulmonary venous congestion. PLEURA: No pleural effusion or pneumothorax. HEART AND MEDIASTINUM: The cardiomediastinal silhouette is unremarkable. There are atherosclerotic calcifications within the aorta. BONES AND SOFT TISSUES: No acute osseous lesion. Soft tissues are unremarkable. UPPER ABDOMEN: No free air under the diaphragm. IMPRESSION: No definite rib fractures identified. Signed by: Dr. Edgar Xavier M.D. on 10/30/2018 5:38 PM
== END 2018-10-30 17:25 | disposition home or self-care (01) ==
LOC: FSED 15:11
DX: S20.212A Contusion of left front wall of thorax, initial encounter (principal); W01.198A Fall on same level from slipping, tripping and stumbling with subsequent striking against other object, initial encounter; Y92.008 Other place in unspecified non-institutional (private) residence as the place of occurrence of the external cause; I10 Essential (primary) hypertension; E11.9 Type 2 diabetes mellitus without complications; E78.00 Pure hypercholesterolemia, unspecified; E03.9 Hypothyroidism, unspecified; K21.9 Gastro-esophageal reflux disease without esophagitis
CPT/HCPCS: 71101; 99283

== ENCOUNTER 2019-11-12 23:36 | Inpatient (IN) | payer MEDICARE, OTHER ==
[~2019-11-12] VITALS: Ht 157.5 cm; Wt 84.8 kg
[2019-11-13] VITALS (7 sets, daily range): BP systolic 129–155; BP diastolic 60–66
[2019-11-13] MEDS ORDERED: CEFEPIME 2 GM/NS 0.9% 100 ML 100 ML IV ONE
[2019-11-13] MEDS ORDERED: ACETAMINOPHEN 325 MG TAB PO ONE
[2019-11-13 00:19] LABS: BASOPHILS % 0.2 % (0.0-1.0); HEMATOCRIT 32.2 % (34.2-44.1); HEMOGLOBIN 10.6 g/dL (12.0-16.0); LYMPHOCYTES # (AUTO) 0.7 (1.0-3.2); LYMPHOCYTES % 5.1 % (18.0-39.1); MEAN CORPUSCULAR HEMOGLOBIN 25.7 pg (28-32); MEAN CORPUSCULAR HGB CONC 32.9 g/dL (31-35); MEAN CORPUSCULAR VOLUME 78.2 fL (81-99); MONOCYTES # (AUTO) 0.9 (0.2-0.8); MONOCYTES % 6.7 % (4.4-11.3); NEUTROPHILS # (AUTO) 11.9 (2.1-6.9); NEUTROPHILS % 87.2 % (38.7-80.0); PLATELET COUNT 286 x10e3/uL (140-360); RED BLOOD COUNT 4.12 x10e6/uL (3.6-5.1); RED CELL DISTRIBUTION WIDTH 14.6 % (11.7-14.4)
[2019-11-13 00:40] LABS: INFLUENZAE A&B ANTIGEN (RAPID) NEGATIVE (NEGATIVE); STREPTOCOCCUS GRP A ANTIGEN POSITIVE (NEGATIVE)
[2019-11-13 00:41] LABS: INR 0.92; PROTHROMBIN TIME 12.9 seconds (11.9-14.5)
[2019-11-13 00:42] LABS: PARTIAL THROMBOPLASTIN TIME 30.1 seconds (23.8-35.5)
[2019-11-13 00:50] LABS: ALANINE AMINOTRANSFERASE 24 IU/L (0-55); ALBUMIN 3.3 g/dL (3.5-5.0); ALBUMIN/GLOBULIN RATIO 0.9 (0.8-2.0); ALKALINE PHOSPHATASE 117 IU/L (40-150); ANION GAP 13.6 mmol/L (8-16); BLOOD UREA NITROGEN 13 mg/dL (7-26); BUN/CREATININE RATIO 13 (6-25); CALCIUM 9.5 mg/dL (8.4-10.2); CARBON DIOXIDE 28 mmol/L (22-29); CHLORIDE 87 mmol/L (98-107); CREATINE KINASE 44 IU/L (29-168); CREATININE, SERUM 1.02 mg/dL (0.57-1.11); EST GLOMERULAR FILTRATION RATE 52 ML/MIN (60-); GLUCOSE 363 mg/dL (74-118); POTASSIUM 3.6 mmol/L (3.5-5.1); SODIUM 125 mmol/L (136-145)
[2019-11-13 01:27] LABS: CLARITY,URINE HAZY (CLEAR); COLOR,URINE YELLOW (YELLOW); LEUKOCYTE ESTERASE ,URINE TRACE (NEGATIVE); NITRITE,URINE NEGATIVE (NEGATIVE)
[2019-11-13 01:28] LABS: BILIRUBIN,URINE NEGATIVE (NEGATIVE); KETONES,URINE NEGATIVE (NEGATIVE); PROTEIN,URINE DIPSTICK NEGATIVE (NEGATIVE); RBC,URINE >50 /HPF (0-5); URINE UROBILINOGEN 0.2 mg/dL (0.2 - 1); WBC,URINE (MAN) >50 /HPF (0-5)
[2019-11-13 01:29] LABS: BACTERIA,URINE MANY /HPF; EPITHELIAL CELLS,URINE FEW /LPF
--- NOTE | 2019-11-13 01:30 | Diagnostic Imaging Report ---
EXAMINATION: CHEST SINGLE (PORTABLE) INDICATION: Fever COMPARISON: Chest x-ray 10/30/2018 FINDINGS: TUBES and LINES: None. LUNGS/PLEURA: Normal lung volumes. Left basilar opacity with obscured left hemidiaphragm, new since 10/30/2018. No pneumothorax HEART AND MEDIASTINUM: The cardiomediastinal silhouette is unremarkable. BONES AND SOFT TISSUES: Degenerative changes in the spine and shoulders. Soft tissues are unremarkable. UPPER ABDOMEN: No free air under the diaphragm. IMPRESSION: Left basilar opacity, new since 10/30/2018, can be due to atelectasis, pleural effusion, and/or pneumonia. Signed by: Josh Suresh DO on 11/13/2019 1:27 AM
[2019-11-13] MEDS ORDERED: INSULIN REGULAR, HUMAN 100 UNIT/1 ML 3ML VIAL SQ ONE (01:45)
[2019-11-13] MEDS ORDERED: SODIUM CHLORIDE 0.9% 1000ML 1,000 ML IV ONE (01:45)
[2019-11-13] MEDS ORDERED: SODIUM CHLORIDE 0.9% 1000ML 1,000 ML ONE (01:47)
--- NOTE | 2019-11-13 03:30 | Diagnostic Imaging Report ---
EXAM: CT Chest WITHOUT contrast INDICATION: EVAL CHANGES ON CXR, objective fever, tachycardia COMPARISON: Same-day chest x-ray TECHNIQUE: Chest was scanned utilizing a multidetector helical scanner from the lung apex through the level of the adrenal glands without administration of IV contrast. Absence of intravenous contrast decreases sensitivity for detection of lymphadenopathy and vascular pathology. Coronal and sagittal reformations were obtained. Routine protocol was performed. IV CONTRAST: None COMPLICATIONS: None RADIATION DOSE: Total DLP: 477 mGy*cm Estimated effective dose: (DLP x 0.014 x size factor) mSv CTDIvol has been reviewed. It is below the limits set by the Radiation Protocol Committee (RPC). Dose modulation, iterative reconstruction, and/or weight based adjustment of the mA/kV was utilized to reduce the radiation dose to as low as reasonably achievable. FINDINGS: LINES/ TUBES: None. LUNGS AND AIRWAYS: Atelectasis/scarring in the lingular tip and basilar dependent aspects lower lobes. Airways are normal. PLEURA: Questionable trace pleural effusions. HEART AND MEDIASTINUM: Tiny calcifications/surgical clips at the thyroid bed, likely due to thyroidectomy or calcific atrophy. No mediastinal, hilar or axillary lymphadenopathy. The heart is normal in size. There is no pericardial effusion. Dense mitral annular calcifications. Calcifications of the aorta and major branches including the coronary arteries. Aortic valve calcifications. Mild left atrial enlargement. UPPER ABDOMEN: Asymmetric perinephric fat stranding about the superior portion of the partially included left kidney. Minimal perinephric fat stranding around the superior portion of the partially included right kidney. BONES: Low bone mineral density. Degenerative changes in the spine. SOFT TISSUES: Unremarkable. IMPRESSION: Moderate degree of perinephric fat stranding about the superior portion of the partially included left kidney, more than compared around the right kidney, could be due to left pyelonephritis. Atelectasis/scarring in the inferior lingula and basilar dependent aspects of the lower lobes. Triple vessel coronary artery calcific atherosclerosis. Aortic valve and mitral annular calcific disease, with mild left atrial enlargement. Signed by: Josh Suresh DO on 11/13/2019 3:27 AM
[2019-11-13] MEDS ORDERED: DEXTROSE 50% SYRINGE 50 ML IV PRN ×2 (03:45→11:15)
[2019-11-13] MEDS ORDERED: ONDANSETRON HCL INJ 2MG/ML 2ML 2 MG/ML VIAL IV PRN (03:45)
--- NOTE | 2019-11-13 06:15 | NUR ---
Patient received via stretcher from ER. AAO x 3. Patient had no complaints of pain. Respirations even and non-labored. IVF infusing at 125 cc/hr. Fall precautions implemented. Patient instructed to call for assistance when needed. Call light within reach.
[2019-11-13] MEDS: SODIUM CHLORIDE 0.9% 1000ML 1,000 ML IV SCH ×2 (06:30→15:48)
[2019-11-13] MEDS ORDERED: INSULIN REGULAR, HUMAN 100 UNIT/1 ML 3ML VIAL SQ SCH (07:30)
[2019-11-13] MEDS ORDERED: MELOXICAM7.5 MG PO (09:06)
[2019-11-13] MEDS ORDERED: BENICAR20 MG PO (09:06)
[2019-11-13] MEDS ORDERED: AMLODIPINE BESY10 MG PO (09:06)
[2019-11-13] MEDS ORDERED: HYDROCHLOROTHIA25 MG PO (09:06)
[2019-11-13] MEDS ORDERED: ATORVASTATIN CA20 MG PO (09:06)
[2019-11-13] MEDS ORDERED: SYNTHROID125 MCG PO (09:06)
[2019-11-13] MEDS ORDERED: LEVEMIR FL100 UNIT/1 (09:08)
[2019-11-13] MEDS ORDERED: NOVOLOG100 UNITS1 (09:08)
[2019-11-13] MEDS: CEFEPIME 2 GM/NS 0.9% 100 ML 100 ML IV SCH ×2 (10:00→16:29)
[2019-11-13] MEDS: INSULIN LISPRO 100 UNIT/1 ML 3ML VIAL SQ SCH ×5 (11:30→21:00)
[2019-11-13] MEDS: ACETAMINOPHEN 325 MG TAB PO PRN ×2 (11:35→22:08)
[2019-11-13] MEDS ORDERED: INSULIN GLARGINE 100 UNITS/ML VIAL SQ ONE (12:00)
--- NOTE | 2019-11-13 12:11 | History and Physical ---
PRIMARY CARE PHYSICIAN: Oscar Sorenson MD. CHIEF COMPLAINT: High blood sugars, fever, and not feeling well. HISTORY OF PRESENT ILLNESS: The patient is a 79-year-old female with fever, increase in blood sugar in the 300. The patient is not feeling well for the past few days with complaint of some dizziness. There is no cough or shortness of breath. The patient has fever of 102.2, now normalized at 97.7 after IV antibiotics. Her strep screen is positive. Influenza A and B negative and the patient has a severe urinary tract infection with right pyelonephritis. No indication, given the patient's infection noticed for any other viral infection ruled out. The patient is stable. No sepsis. The patient admitted for IV antibiotics. PAST MEDICAL HISTORY: Including hypothyroidism; diabetes type 2, seem to be uncontrolled. Hypertension, dyslipidemia, anxiety disorder, depression, reflux. PAST SURGICAL HISTORY: Hip replacement, knee repair and other joint surgery. SOCIAL HISTORY: The patient does not smoke or use alcohol. No regular drugs. ALLERGIES: TO PENICILLIN. MEDICATIONS: Current medications at home. The patient is on: 1. Xanax. 2. Norvasc. 3. Lipitor. 4. Celexa. 5. Glipizide. 6. Metformin. 7. HCTZ. 8. NovoLog insulin. 9. Levemir insulin. 10. Levothyroxine. 11. Meloxicam. 12. Benicar. 13. Omeprazole. 14. Tramadol. PHYSICAL EXAMINATION: VITAL SIGNS: Current temperature is 97.7, blood pressure 129/60, pulse rate 69, respirations 18. T-max 102, resolved. GENERAL: The patient is not in acute distress. HEENT: Normocephalic and atraumatic. She is anicteric. NECK: Supple grossly. PULMONARY: Clear. CARDIOVASCULAR: Regular rate and rhythm. ABDOMEN: Soft, obese. Some tenderness on the right flank area. EXTREMITIES: No cyanosis or edema. NEUROLOGIC: No focal deficit. LABORATORY DATA: Sodium is 125, potassium 3.64, chloride 87, bicarb 28. BUN is 18, creatinine 1.0, and glucose is 363. WBC 13.6, hemoglobin 10.6, hematocrit 32.2, platelets 286. CT chest showed no pneumonia, but the patient does have moderate degree of perinephric fat stranding, superior portion of the left kidney more than compared to the right kidney area. The patient has left pyelonephritis, most likely on CT scan. 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 Triple-vessel coronary artery atherosclerosis. IMPRESSION: 1. Left pyelonephritis associated with urinary tract infection. Fever and weakness contributed by the above. No sign of sepsis. Lactic acid level was normal. 2. Pharyngitis with Streptococcus. 3. Fever, resolved. 4. Uncontrolled diabetes type 2. 5. Hypertension. 6. Hyponatremia, most likely a combination of dehydration, secondary to HCTZ and hypertensive medication. PLAN: IV fluid rehydration. Antibiotics. Control diabetes. Insulin treatment. Home medication with some adjustment. We will continue to monitor the patient closely. Check the urine culture and blood culture. The patient is otherwise stable at this time. MD TRACI Givens/MODL /[id number]
[2019-11-13] MEDS: PRIMIDONE 50 MG TAB PO SCH (16:29)
[2019-11-13] MEDS ORDERED: INSULIN GLARGINE 100 UNITS/ML VIAL SQ SCH (21:00)
[2019-11-14] VITALS (8 sets, daily range): BP systolic 127–174; BP diastolic 54–74
[2019-11-14] MEDS: SODIUM CHLORIDE 0.9% 1000ML 1,000 ML IV SCH ×3 (00:38→22:00)
[2019-11-14] MEDS: LEVOTHYROXINE SODIUM 125 MCG TAB PO SCH (06:30)
[2019-11-14 06:33] LABS: BASOPHILS % 0.4 % (0.0-1.0); EOSINOPHILS % 0.1 % (0.0-6.0); HEMATOCRIT 28.6 % (34.2-44.1); LYMPHOCYTES # (AUTO) 0.9 (1.0-3.2); LYMPHOCYTES % 12.2 % (18.0-39.1); MEAN CORPUSCULAR HEMOGLOBIN 25.4 pg (28-32); MEAN CORPUSCULAR HGB CONC 31.5 g/dL (31-35); MEAN CORPUSCULAR VOLUME 80.8 fL (81-99); MONOCYTES # (AUTO) 0.6 (0.2-0.8); MONOCYTES % 7.8 % (4.4-11.3); PLATELET COUNT 220 x10e3/uL (140-360); RED BLOOD COUNT 3.54 x10e6/uL (3.6-5.1); RED CELL DISTRIBUTION WIDTH 14.6 % (11.7-14.4)
--- NOTE | 2019-11-14 07:00 | NUR ---
Walking rounds done. Shift report given to oncoming nurse.
[2019-11-14 07:02] LABS: ANION GAP 9.8 mmol/L (8-16); BLOOD UREA NITROGEN 7 mg/dL (7-26); BUN/CREATININE RATIO 11 (6-25); CALCIUM 8.5 mg/dL (8.4-10.2); CARBON DIOXIDE 28 mmol/L (22-29); CHLORIDE 99 mmol/L (98-107); CREATININE, SERUM 0.63 mg/dL (0.57-1.11); EST GLOMERULAR FILTRATION RATE > 60 ML/MIN (60-); GLUCOSE 210 mg/dL (74-118); SODIUM 134 mmol/L (136-145)
[2019-11-14 07:11] LABS: POTASSIUM 2.8 mmol/L (3.5-5.1)
--- NOTE | 2019-11-14 07:44 | NUR ---
paged to notify [facility]. Awaiting call back
[2019-11-14] MEDS: CITALOPRAM HYDROBROMIDE 20 MG TAB PO SCH (08:00)
[2019-11-14] MEDS: PRIMIDONE 50 MG TAB PO SCH ×2 (08:00→16:26)
[2019-11-14] MEDS: CEFEPIME 2 GM/NS 0.9% 100 ML 100 ML IV SCH ×3 (08:00→20:00)
[2019-11-14] MEDS: PANTOPRAZOLE SOD 40 MG TABEC PO SCH (08:00)
--- NOTE | 2019-11-14 08:46 | NUR ---
Repaged [facility]. Awaiting call back
[2019-11-14] MEDS ORDERED: INSULIN GLARGINE 100 UNITS/ML VIAL SQ ONE (09:00)
[2019-11-14] MEDS: INSULIN LISPRO 100 UNIT/1 ML 3ML VIAL SQ SCH ×7 (09:52→21:00)
[2019-11-14] MEDS: NIFEDIPINE CR 30 MG TAB PO SCH (09:53)
[2019-11-14] MEDS: POTASSIUM CHLORIDE 10MEQ EA PO SCH ×2 (09:53→14:00)
[2019-11-14] MEDS ORDERED: CEFEPIME 2 GM/NS 0.9% 100 ML 100 ML IV SCH (10:00)
--- NOTE | 2019-11-14 10:35 | Diagnostic Imaging Report ---
EXAM: CT Abdomen and Pelvis WITH contrast INDICATION: Acute pyelonephritis. Concern for urinary obstruction. COMPARISON: None. TECHNIQUE: Abdomen and pelvis were scanned utilizing a multidetector helical scanner from the lung base to the pubic symphysis after administration of IV contrast. Coronal and sagittal reformations were obtained. Routine protocol was performed. Scan was performed when during portal venous phase. IV CONTRAST: 10 mL of isovue 370 ORAL CONTRAST: Water RADIATION DOSE: Total DLP: 565.38 mGy*cm Estimated effective dose: (DLP x 0.015 x size factor) mSv COMPLICATIONS: None FINDINGS: LINES and TUBES: None. LOWER THORAX: Bilateral trace pleural effusions and bibasilar subsegmental atelectasis. Coronary artery calcifications. Severe calcification of the mitral valve. Trace pericardial fluid. HEPATOBILIARY: The liver is diffuse hypodense compared to the spleen, consistent with diffuse hepatic diffuse hepatic steatosis. No focal hepatic lesions. No biliary ductal dilation. GALLBLADDER: No radio-opaque stones or sludge. No wall thickening. SPLEEN: No splenomegaly. PANCREAS: No focal masses or ductal dilatation. ADRENALS: Mild diffuse thickening of the left adrenal gland suggesting mild hyperplasia. KIDNEYS/URETERS: Bilateral striated nephrograms. Mild bilateral perinephric stranding without perinephric fluid collections. No hydronephrosis. No cystic or solid mass lesions. 8.5 mm nonobstructing calculus in the interpolar region of the left kidney on image 33 series 2. GI TRACT: No abnormal distention, wall thickening, or evidence of bowel obstruction. Appendix is not visualized. PELVIC ORGANS/BLADDER: The uterus is absent. LYMPH NODES: No lymphadenopathy. VESSELS: There is moderate atherosclerotic disease in the aorta and major arterial branches. PERITONEUM / RETROPERITONEUM: Small amount of free fluid in the abdomen. BONES: There are degenerative changes in the lumbar spine. Remote lower left-sided rib fractures. Status post ORIF of the right femoral neck with partially visualized intramedullary marcy and screws. Generalized osteopenia. Mild anterior wedging of lower thoracic vertebra and of L3. SOFT TISSUES: Unremarkable. IMPRESSION: 1. Bilateral striated nephrograms suggestive of acute pyelonephritis without evidence of obstruction. No hydronephrosis. 2. 8.5 mm nonobstructing calculus in the interpolar region of the left kidney Signed by: Dr. Dileep Cr M.D. on 11/14/2019 10:32 AM
--- NOTE | 2019-11-14 11:25 | NUR ---
aware of CT results. No new orders
[2019-11-14] MEDS: ALPRAZOLAM 0.5 MG TAB PO PRN (16:26)
[2019-11-14] MEDS ORDERED: SODIUM CHLORIDE 0.9% 50ML 50 ML ONE (18:37)
[2019-11-14] MEDS ORDERED: IOPAMIDOL 370 MG/ML 200 ML INFUS..BTL INJ ONE (18:38)
--- NOTE | 2019-11-14 19:14 | NUR ---
Report given to oncoming nurse of patient's status. Resting in bed. No s/s of acute distress noted. Side rails upx2, call light within reach, bed alarm on.
--- NOTE | 2019-11-14 19:28 | NUR ---
Patient received sitting up in bed. No acute distress noted. Bed locked and in lowest position. Bed rails up x 2. Patient instructed to call for assistance when needed. Call light within reach.
[2019-11-14] MEDS: INSULIN GLARGINE 100 UNITS/ML VIAL SQ SCH (21:00)
[2019-11-15] VITALS (8 sets, daily range): BP systolic 133–172; BP diastolic 61–72
[2019-11-15] MEDS: ALPRAZOLAM 0.5 MG TAB PO PRN ×2 (00:21→21:11)
[2019-11-15] MEDS: SODIUM CHLORIDE 0.9% 1000ML 1,000 ML IV SCH (02:55)
[2019-11-15 05:41] LABS: BASOPHILS % 0.7 % (0.0-1.0); EOSINOPHILS % 0.7 % (0.0-6.0); HEMATOCRIT 27.8 % (34.2-44.1); HEMOGLOBIN 8.8 g/dL (12.0-16.0); LYMPHOCYTES # (AUTO) 1.3 (1.0-3.2); LYMPHOCYTES % 21.5 % (18.0-39.1); MEAN CORPUSCULAR HEMOGLOBIN 25.5 pg (28-32); MEAN CORPUSCULAR HGB CONC 31.7 g/dL (31-35); MEAN CORPUSCULAR VOLUME 80.6 fL (81-99); MONOCYTES # (AUTO) 0.5 (0.2-0.8); MONOCYTES % 8.4 % (4.4-11.3); NEUTROPHILS % 68.2 % (38.7-80.0); PLATELET COUNT 238 x10e3/uL (140-360); RED BLOOD COUNT 3.45 x10e6/uL (3.6-5.1); RED CELL DISTRIBUTION WIDTH 14.7 % (11.7-14.4)
[2019-11-15 06:03] LABS: ANION GAP 10.3 mmol/L (8-16); BLOOD UREA NITROGEN 6 mg/dL (7-26); BUN/CREATININE RATIO 9 (6-25); CALCIUM 8.7 mg/dL (8.4-10.2); CARBON DIOXIDE 27 mmol/L (22-29); CHLORIDE 100 mmol/L (98-107); CREATININE, SERUM 0.64 mg/dL (0.57-1.11); EST GLOMERULAR FILTRATION RATE > 60 ML/MIN (60-); GLUCOSE 190 mg/dL (74-118); POTASSIUM 3.3 mmol/L (3.5-5.1); SODIUM 134 mmol/L (136-145)
[2019-11-15] MEDS: LEVOTHYROXINE SODIUM 125 MCG TAB PO SCH (06:12)
[2019-11-15 06:26] LABS: MAGNESIUM 1.5 MG/DL (1.3-2.1); PHOSPHORUS 1.9 MG/DL (2.3-4.7)
--- NOTE | 2019-11-15 07:00 | NUR ---
Patient resting comfortably. No acute distress noted. Shift report given to oncoming nurse.
--- NOTE | 2019-11-15 07:26 | NUR ---
ASSUMED CARE. AWAKE AND ALERT. ACYANOTIC. RESTING IN BED. NO DISTRESS NOTED. CALL LIGHT IN REACH. BED LOW. SIDERAILS UP X2.
[2019-11-15] MEDS: INSULIN LISPRO 100 UNIT/1 ML 3ML VIAL SQ SCH ×7 (08:30→21:00)
[2019-11-15] MEDS: PANTOPRAZOLE SOD 40 MG TABEC PO SCH (08:40)
[2019-11-15] MEDS: CITALOPRAM HYDROBROMIDE 20 MG TAB PO SCH (08:58)
[2019-11-15] MEDS: PRIMIDONE 50 MG TAB PO SCH ×2 (08:58→17:21)
[2019-11-15] MEDS: NIFEDIPINE CR 30 MG TAB PO SCH (08:58)
[2019-11-15] MEDS: CEFEPIME 2 GM/NS 0.9% 100 ML 100 ML IV SCH ×2 (09:00→21:11)
[2019-11-15] MEDS ORDERED: MAGNESIUM SULFATE 2GM/50ML IV ONE (09:15)
[2019-11-15] MEDS ORDERED: MAGNESIUM SULFATE 2GM/50ML 50 ML IV ONE (10:00)
[2019-11-15] MEDS ORDERED: POTASSIUM CHLORIDE 10MEQ EA PO ONE (10:30)
[2019-11-15] MEDS ORDERED: POTASSIUM PHOSPHATE 20 MM in SODIUM CHLORIDE 0.9% 250ML 250 ML IV ONE (12:00)
--- NOTE | 2019-11-15 16:21 | NUR ---
IMM letter delivered and explained to pt. She states she's ready to go home. Anticipate dc tomorrow. Signed copy placed in chart. Polish copy left at bedside for pt.
[2019-11-15] MEDS ORDERED: SODIUM CHLORIDE 0.9% 1000ML 0 ML ONE (19:02)
--- NOTE | 2019-11-15 19:28 | NUR ---
REPORT GIVEN TO ONCOMING NURSE
[2019-11-15] MEDS: INSULIN GLARGINE 100 UNITS/ML VIAL SQ SCH (21:00)
[2019-11-16] MEDS: ACETAMINOPHEN 325 MG TAB PO PRN (00:31)
[2019-11-16 01:36] VITALS: BP 172/72
[2019-11-16] MEDS: LEVOTHYROXINE SODIUM 125 MCG TAB PO SCH (06:02)
[2019-11-16 07:19] VITALS: BP 117/58
[2019-11-16 07:22] LABS: ANION GAP 9.5 mmol/L (8-16); BLOOD UREA NITROGEN 9 mg/dL (7-26); BUN/CREATININE RATIO 15 (6-25); CALCIUM 8.2 mg/dL (8.4-10.2); CARBON DIOXIDE 29 mmol/L (22-29); CHLORIDE 102 mmol/L (98-107); CREATININE, SERUM 0.62 mg/dL (0.57-1.11); EST GLOMERULAR FILTRATION RATE > 60 ML/MIN (60-); GLUCOSE 159 mg/dL (74-118); POTASSIUM 3.5 mmol/L (3.5-5.1); SODIUM 137 mmol/L (136-145)
[2019-11-16] MEDS: INSULIN LISPRO 100 UNIT/1 ML 3ML VIAL SQ SCH ×4 (07:30→11:49)
[2019-11-16 07:38] LABS: MAGNESIUM 1.8 MG/DL (1.3-2.1); PHOSPHORUS 2.6 MG/DL (2.3-4.7)
[2019-11-16 07:53] VITALS: BP 181/77
[2019-11-16 08:02] VITALS: BP 181/77
[2019-11-16] MEDS: CEFEPIME 2 GM/NS 0.9% 100 ML 100 ML IV SCH (08:08)
[2019-11-16] MEDS: PANTOPRAZOLE SOD 40 MG TABEC PO SCH (08:08)
[2019-11-16] MEDS: PRIMIDONE 50 MG TAB PO SCH (08:08)
[2019-11-16] MEDS: NIFEDIPINE CR 30 MG TAB PO SCH (08:09)
[2019-11-16 09:33] VITALS: BP 151/67
--- NOTE | 2019-11-16 10:28 | Discharge Summary ---
PRIMARY CARE PHYSICIAN: Oscar Sorenson MD FINAL DIAGNOSES: 1. Left pyelonephritis due to nonobstructive stone. 2. Klebsiella pneumonia bacteria infection. 3. Urinary tract infection, secondary to the above. 4. Fever, resolved. SUMMARY: This is a 79-year-old female, who came in with left pyelonephritis, confirmed with CT scan of abdomen and pelvis. The patient has also has low sodium level, secondary to HCTZ and dehydration. The patient is otherwise, stable now. Her medication has been adjusted. The patient is comfortable. She will go home today. She will take Keflex 500 mg 3 times a day for 10 days. She will take a nifedipine XL 60 mg once a day and stop the Norvasc and HCTZ. The patient is otherwise, stable. Her potassium has been replaced. The patient was comfortable at this time. She is ambulatory. She had good bowel movement, and she urinating without any symptoms. No fever. The patient is stable, discharged home with the medication as mentioned: 1. Resume home medication except for Norvasc and HCTZ. 2. Keflex 500 mg 3 times a day for 10 days. 3. Nifedipine XL 60 mg daily. The patient will follow up with Dr. Oscar Sorenson, her primary care physician within a week. MD TRACI Givens/MODL /[id number]
[2019-11-16] MEDS ORDERED: ONDANSETRON HCL 4 MG ORAL DISINTEGRATING TAB PO PRN (10:30)
[2019-11-16] MEDS ORDERED: KEFLEX500 MG PO (10:59)
[2019-11-16] MEDS ORDERED: PROCARDIA XL30 MG PO (11:00)
[2019-11-16] MEDS ORDERED: CITALOPRAM HYDROBROMIDE 20 MG TAB PO SCH (21:00)
== END 2019-11-16 11:53 | disposition home or self-care (01) | DRG 689 ==
LOC: ER 23:36 → ERHOLD 11-13 03:52 → MED/SURG2 11-13 06:00
PROVIDERS: ADMIT Internal Medicine; ATTEND Internal Medicine
DX: N10 Acute pyelonephritis (principal); J15.0 Pneumonia due to Klebsiella pneumoniae; E87.1 Hypo-osmolality and hyponatremia; J02.0 Streptococcal pharyngitis; I10 Essential (primary) hypertension; E86.0 Dehydration; T50.2X5A Adverse effect of carbonic-anhydrase inhibitors, benzothiadiazides and other diuretics, initial encounter; E03.9 Hypothyroidism, unspecified; N20.0 Calculus of kidney
CPT/HCPCS: 36415; 71045; 71250; 74177; 80048; 80053; 81001; 82550; 82553; 82607; 82746; 82948; 83036; 83518; 83605; 83735; 84100; 84443; 84484; 85025; 85610; 85730; 87040; 87086; 87186; 87400; 93005; 99284; J1815; J1817; J3475; J7030; J7050; Q9967

== ENCOUNTER 2020-11-14 12:28 | Emergency (ER) | payer MEDICARE ==
[~2020-11-14] VITALS: Ht 157.5 cm; Wt 84.8 kg
[~2020-11-14 12:28] MED LIST changes: +AMLODIPINE BESY10 MG PO; +ATORVASTATIN CA20 MG PO; +BENICAR20 MG PO; +HYDROCHLOROTHIA25 MG PO; +KEFLEX500 MG PO; +LEVEMIR FL100 UNIT/1; +MELOXICAM7.5 MG PO; +NOVOLOG100 UNITS1; +PROCARDIA XL30 MG PO; +SYNTHROID125 MCG PO
[2020-11-14] MEDS ORDERED: SODIUM CHLORIDE 0.9% 1000ML 1,000 ML IV SCH (13:00)
[2020-11-14 13:05] LABS: BASOPHILS % 0.5 % (0.0-1.0); EOSINOPHILS % 0.1 % (0.0-6.0); HEMATOCRIT 33.1 % (34.2-44.1); HEMOGLOBIN 10.9 g/dL (12.0-16.0); LYMPHOCYTES # (AUTO) 1.4 (1.0-3.2); LYMPHOCYTES % 16.9 % (18.0-39.1); MEAN CORPUSCULAR HGB CONC 32.9 g/dL (31-35); MEAN CORPUSCULAR VOLUME 85.1 fL (81-99); MONOCYTES # (AUTO) 0.5 (0.2-0.8); NEUTROPHILS # (AUTO) 6.2 (2.1-6.9); NEUTROPHILS % 76.1 % (38.7-80.0); PLATELET COUNT 312 x10e3/uL (140-360); RED BLOOD COUNT 3.89 x10e6/uL (3.6-5.1); RED CELL DISTRIBUTION WIDTH 13.2 % (11.7-14.4)
[2020-11-14 13:20] LABS: ANION GAP 16.4 mmol/L (8-16); BLOOD UREA NITROGEN 9 mg/dL (7-26); BUN/CREATININE RATIO 13 (6-25); CALCIUM 9.3 mg/dL (8.4-10.2); CARBON DIOXIDE 26 mmol/L (22-29); CHLORIDE 85 mmol/L (98-107); CREATININE, SERUM 0.72 mg/dL (0.57-1.11); EST GLOMERULAR FILTRATION RATE > 60 ML/MIN (60-); GLUCOSE 180 mg/dL (74-118); POTASSIUM 4.4 mmol/L (3.5-5.1); SODIUM 123 mmol/L (136-145)
[2020-11-14 13:24] LABS: CLARITY,URINE CLEAR (CLEAR); COLOR,URINE YELLOW (YELLOW)
[2020-11-14 13:25] LABS: KETONES,URINE NEGATIVE (NEGATIVE); LEUKOCYTE ESTERASE ,URINE SMALL (NEGATIVE); NITRITE,URINE POSITIVE (NEGATIVE); PROTEIN,URINE DIPSTICK NEGATIVE (NEGATIVE); URINE UROBILINOGEN 0.2 mg/dL (0.2 - 1)
[2020-11-14 13:27] LABS: BACTERIA,URINE FEW /HPF
[2020-11-14 13:28] LABS: EPITHELIAL CELLS,URINE RARE /LPF
[2020-11-14] MEDS ORDERED: CEFTRIAXONE SOD 1 GM/50 ML BAG IV ONE (13:30)
[2020-11-14] MEDS: SODIUM CHLORIDE 0.9% 500ML 500 ML IV SCH (13:50)
[2020-11-14] MEDS: CEFTRIAXONE SOD 1 GM in SODIUM CHLORIDE 0.9% 50ML 50 ML IV ONE (13:50)
[2020-11-14] MEDS ORDERED: CEPHALEXIN500 MG PO (14:20)
== END 2020-11-14 14:28 | disposition home or self-care (01) ==
LOC: ER 12:57
DX: E87.1 Hypo-osmolality and hyponatremia (principal); N39.0 Urinary tract infection, site not specified; R05 Cough; R42 Dizziness and giddiness; E11.65 Type 2 diabetes mellitus with hyperglycemia; I10 Essential (primary) hypertension; E78.5 Hyperlipidemia, unspecified; K21.9 Gastro-esophageal reflux disease without esophagitis; F41.9 Anxiety disorder, unspecified
CPT/HCPCS: 36415; 80048; 81001; 85025; 93005; 99284; J0696; J7040

== ENCOUNTER → 2020-12-25 | Outpatient (CLI) | payer MEDICARE ==
[~2020-12-25] MED LIST changes: +CEPHALEXIN500 MG PO; +FAMOTIDINE20 MG PO; -LEVEMIR FL100 UNIT/1; +LEVEMIR FL100 UNIT/1 SC; +METFORMIN HCL500 MG PO; -NOVOLOG100 UNITS1; +NOVOLOG100 UNITS1 SC
[2020-12-25 11:55] LABS: BASOPHILS % 0.5 % (0.0-1.0); EOSINOPHILS % 0.3 % (0.0-6.0); HEMATOCRIT 32.8 % (34.2-44.1); HEMOGLOBIN 10.6 g/dL (12.0-16.0); LYMPHOCYTES # (AUTO) 1.1 (1.0-3.2); LYMPHOCYTES % 18.5 % (18.0-39.1); MEAN CORPUSCULAR HGB CONC 32.3 g/dL (31-35); MEAN CORPUSCULAR VOLUME 83.7 fL (81-99); MONOCYTES # (AUTO) 0.4 (0.2-0.8); MONOCYTES % 6.1 % (4.4-11.3); NEUTROPHILS # (AUTO) 4.4 (2.1-6.9); NEUTROPHILS % 74.1 % (38.7-80.0); PLATELET COUNT 269 x10e3/uL (140-360); RED BLOOD COUNT 3.92 x10e6/uL (3.6-5.1); RED CELL DISTRIBUTION WIDTH 14.3 % (11.7-14.4)
== END | disposition home or self-care (01) ==
LOC: LAB 15:28 → EDSTATUS 12-28 08:30
PROVIDERS: ATTEND Internal Medicine Gastroenterology
DX: Z01.812 Encounter for preprocedural laboratory examination (principal); Z20.822 Contact with and (suspected) exposure to COVID-19; K31.7 Polyp of stomach and duodenum; R12 Heartburn; E11.9 Type 2 diabetes mellitus without complications; Z71.3 Dietary counseling and surveillance; E66.9 Obesity, unspecified; Z68.30 Body mass index [BMI] 30.0-30.9, adult; I10 Essential (primary) hypertension
CPT/HCPCS: 36415; 85025; U0002

== ENCOUNTER 2021-12-10 09:04 | Inpatient (IN) | payer MEDICARE, MEDICAID ==
[~2021-12-10] VITALS: Ht 157.5 cm; Wt 84.8 kg
[2021-12-10] MEDS ORDERED: ONDANSETRON HCL INJ 2MG/ML 2ML 2 MG/ML VIAL IV STA (09:30)
[2021-12-10] MEDS ORDERED: SODIUM CHLORIDE 0.9% 1000ML 1,000 ML IV STA (09:30)
[2021-12-10 09:50] LABS: BASOPHILS % 0.2 % (0.0-1.0); HEMATOCRIT 36.2 % (34.2-44.1); HEMOGLOBIN 11.4 g/dL (12.0-16.0); LYMPHOCYTES # (AUTO) 0.3 (1.0-3.2); MEAN CORPUSCULAR HEMOGLOBIN 24.6 pg (28-32); MEAN CORPUSCULAR HGB CONC 31.5 g/dL (31-35); MONOCYTES # (AUTO) 0.6 (0.2-0.8); MONOCYTES % 3.6 % (4.4-11.3); NEUTROPHILS # (AUTO) 15.7 (2.1-6.9); NEUTROPHILS % 92.6 % (38.7-80.0); PLATELET COUNT 265 x10e3/uL (140-360); RED BLOOD COUNT 4.64 x10e6/uL (3.6-5.1); RED CELL DISTRIBUTION WIDTH 16.2 % (11.7-14.4)
[2021-12-10 10:01] LABS: INR 0.9
[2021-12-10 10:11] LABS: PARTIAL THROMBOPLASTIN TIME 26.6 seconds (23.8-35.5)
[2021-12-10 10:13] LABS: CLARITY,URINE CLEAR (CLEAR); COLOR,URINE YELLOW (YELLOW); KETONES,URINE TRACE (NEGATIVE); LEUKOCYTE ESTERASE ,URINE NEGATIVE (NEGATIVE); NITRITE,URINE NEGATIVE (NEGATIVE); PROTEIN,URINE DIPSTICK 1+ (NEGATIVE); URINE UROBILINOGEN 0.2 mg/dL (0.2 - 1)
[2021-12-10 10:13] LABS: ALBUMIN 3.8 g/dL (3.5-5.0); ALBUMIN/GLOBULIN RATIO 0.9 (0.8-2.0); ANION GAP 16.6 mmol/L (8-16); CALCIUM 9.6 mg/dL (8.4-10.2); CREATININE, SERUM 0.72 mg/dL (0.57-1.11); MAGNESIUM 1.6 MG/DL (1.3-2.1); POTASSIUM 3.6 mmol/L (3.5-5.1)
[2021-12-10 10:19] LABS: CREATINE KINASE MB 1.4 ng/mL (0-5.0)
[2021-12-10 10:30] LABS: RBC,URINE >50 /HPF (0-5)
[2021-12-10 10:31] LABS: BACTERIA,URINE FEW /HPF; EPITHELIAL CELLS,URINE RARE /LPF
[2021-12-10] MEDS: MEROPENEM 1 GM in SODIUM CHLORIDE 0.9% 100 ML IV SCH ×2 (11:09→20:25)
[2021-12-10] MEDS ORDERED: IOPAMIDOL 370 MG/ML 100 ML INFUS..BTL INJ ONE (11:14)
[2021-12-10] MEDS ORDERED: DEXTROSE 50% SYRINGE 50 ML IV PRN (11:30)
[2021-12-10] MEDS: INSULIN LISPRO 100 UNIT/1 ML 3ML VIAL SQ SCH ×3 (11:30→21:00)
[2021-12-10] MEDS ORDERED: SODIUM CHLORIDE 0.9% 1000ML 1,000 ML IV ONE (11:30)
[2021-12-10] MEDS: METRONIDAZOLE 500MG/NS 100ML 100 ML IV SCH ×2 (11:30→17:04)
[2021-12-10] MEDS ORDERED: ONDANSETRON HCL INJ 2MG/ML 2ML 2 MG/ML VIAL IV PRN (11:30)
[2021-12-10] MEDS ORDERED: MIRTAZAPINE15 MG PO (12:08)
[2021-12-10] MEDS ORDERED: GABAPENTIN100 MG PO (12:08)
[2021-12-10] MEDS ORDERED: MONTELUKAST SOD10 MG PO (12:08)
[2021-12-10] MEDS ORDERED: HYDROCHLOROTH12.5 MG (12:08)
[2021-12-10] MEDS ORDERED: JANUVIA100 MG PO (12:08)
[2021-12-10] MEDS ORDERED: ACETAMINOPHEN 325 MG TAB PO PRN (13:45)
[2021-12-10] MEDS ORDERED: HYDRALAZINE HCL 20 MG/ML VIAL IV PRN (14:15)
[2021-12-10 15:06] VITALS: BP 150/68
[2021-12-10 15:09] VITALS: BP 150/68
[2021-12-10 19:07] LABS: CREATINE KINASE MB 0.9 ng/mL (0-5.0)
[2021-12-10 20:00] VITALS: BP 169/60
[2021-12-10 20:25] VITALS: BP 169/60
[2021-12-10] MEDS: ACETAMINOPHEN 325 MG TAB PO PRN (20:59)
[2021-12-10] MEDS: SODIUM CHLORIDE 0.9% 1000ML 1,000 ML IV SCH (22:57)
[2021-12-11] VITALS (8 sets, daily range): BP systolic 135–172; BP diastolic 43–88
[2021-12-11] MEDS: METRONIDAZOLE 500MG/NS 100ML 100 ML IV SCH ×4 (00:34→17:07)
[2021-12-11] MEDS: ACETAMINOPHEN 325 MG TAB PO PRN ×3 (03:49→22:57)
[2021-12-11] MEDS: MEROPENEM 1 GM in SODIUM CHLORIDE 0.9% 100 ML IV SCH ×3 (04:23→21:13)
[2021-12-11 05:04] LABS: BASOPHILS % 0.3 % (0.0-1.0); HEMATOCRIT 29.9 % (34.2-44.1); HEMOGLOBIN 9.2 g/dL (12.0-16.0); LYMPHOCYTES # (AUTO) 0.5 (1.0-3.2); MEAN CORPUSCULAR HEMOGLOBIN 24.6 pg (28-32); MEAN CORPUSCULAR HGB CONC 30.8 g/dL (31-35); MEAN CORPUSCULAR VOLUME 79.9 fL (81-99); MONOCYTES # (AUTO) 0.5 (0.2-0.8); MONOCYTES % 4.9 % (4.4-11.3); NEUTROPHILS # (AUTO) 8.4 (2.1-6.9); NEUTROPHILS % 89.1 % (38.7-80.0); PLATELET COUNT 196 x10e3/uL (140-360); RED BLOOD COUNT 3.74 x10e6/uL (3.6-5.1); RED CELL DISTRIBUTION WIDTH 16.4 % (11.7-14.4)
[2021-12-11 05:31] LABS: ALBUMIN 2.9 g/dL (3.5-5.0); ALBUMIN/GLOBULIN RATIO 0.9 (0.8-2.0); ANION GAP 13.3 mmol/L (8-16); CALCIUM 8.2 mg/dL (8.4-10.2); CREATININE, SERUM 0.68 mg/dL (0.57-1.11); POTASSIUM 3.3 mmol/L (3.5-5.1)
[2021-12-11 05:59] LABS: CREATINE KINASE MB 0.8 ng/mL (0-5.0)
[2021-12-11] MEDS: INSULIN LISPRO 100 UNIT/1 ML 3ML VIAL SQ SCH ×4 (07:30→21:00)
[2021-12-11] MEDS: SODIUM CHLORIDE 0.9% 1000ML 1,000 ML IV SCH (10:29)
[2021-12-11] MEDS: NIFEDIPINE CR 30 MG TAB PO SCH (14:16)
[2021-12-11] MEDS: PRIMIDONE 50 MG TAB PO SCH (17:07)
[2021-12-11] MEDS: INSULIN ASPART 70/30 100 UNITS/ML VIAL SC SCH (21:00)
[2021-12-11] MEDS: ATORVASTATIN 20 MG TAB PO SCH (21:13)
[2021-12-12] MEDS: METRONIDAZOLE 500MG/NS 100ML 100 ML IV SCH ×4 (00:30→17:22)
[2021-12-12] MEDS: SODIUM CHLORIDE 0.9% 1000ML 1,000 ML IV SCH ×2 (00:31→13:15)
[2021-12-12 00:37] VITALS: BP 129/52
[2021-12-12 04:00] VITALS: BP 129/52
[2021-12-12] MEDS: MEROPENEM 1 GM in SODIUM CHLORIDE 0.9% 100 ML IV SCH ×3 (04:35→20:21)
[2021-12-12] MEDS: LEVOTHYROXINE SODIUM 125 MCG TAB PO SCH (06:32)
[2021-12-12] MEDS: INSULIN LISPRO 100 UNIT/1 ML 3ML VIAL SQ SCH ×4 (07:30→20:48)
[2021-12-12 08:14] VITALS: BP 172/63
[2021-12-12] MEDS ORDERED: CITALOPRAM HYDROBROMIDE 20 MG TAB PO SCH (09:00)
[2021-12-12] MEDS: OLMESARTAN 20 MG TAB PO SCH (09:09)
[2021-12-12] MEDS: GABAPENTIN 100 MG CAP PO SCH (09:13)
[2021-12-12] MEDS: SITAGLIPTIN 100 MG TAB PO SCH (09:13)
[2021-12-12] MEDS: PRIMIDONE 50 MG TAB PO SCH ×2 (09:13→16:58)
[2021-12-12] MEDS: NIFEDIPINE CR 30 MG TAB PO SCH (09:14)
[2021-12-12] MEDS: MONTELUKAST SODIUM 10 MG TAB PO SCH (09:17)
[2021-12-12] MEDS ORDERED: ASPIRIN CHEW81 MG PO (10:01)
[2021-12-12 20:05] VITALS: BP 154/58
[2021-12-12] MEDS: INSULIN ASPART 70/30 100 UNITS/ML VIAL SC SCH (20:21)
[2021-12-12] MEDS: ATORVASTATIN 20 MG TAB PO SCH (20:21)
[2021-12-12] MEDS: CITALOPRAM HYDROBROMIDE 20 MG TAB PO SCH (20:21)
[2021-12-13] MEDS: METRONIDAZOLE 500MG/NS 100ML 100 ML IV SCH ×2 (00:13→06:11)
[2021-12-13] MEDS: MEROPENEM 1 GM in SODIUM CHLORIDE 0.9% 100 ML IV SCH (03:28)
[2021-12-13] MEDS: SODIUM CHLORIDE 0.9% 1000ML 1,000 ML IV SCH ×2 (03:28→16:53)
[2021-12-13] MEDS: ACETAMINOPHEN 325 MG TAB PO PRN ×2 (03:28→22:25)
[2021-12-13 05:09] VITALS: BP 154/58
[2021-12-13 05:43] VITALS: BP 133/69
[2021-12-13 06:10] LABS: BASOPHILS % 0.4 % (0.0-1.0); EOSINOPHILS % 0.8 % (0.0-6.0); HEMATOCRIT 28.5 % (34.2-44.1); HEMOGLOBIN 8.8 g/dL (12.0-16.0); LYMPHOCYTES # (AUTO) 0.7 (1.0-3.2); LYMPHOCYTES % 14.1 % (18.0-39.1); MEAN CORPUSCULAR HEMOGLOBIN 24.4 pg (28-32); MEAN CORPUSCULAR HGB CONC 30.9 g/dL (31-35); MEAN CORPUSCULAR VOLUME 78.9 fL (81-99); MONOCYTES # (AUTO) 0.5 (0.2-0.8); MONOCYTES % 9.6 % (4.4-11.3); NEUTROPHILS # (AUTO) 3.7 (2.1-6.9); NEUTROPHILS % 74.7 % (38.7-80.0); PLATELET COUNT 202 x10e3/uL (140-360); RED BLOOD COUNT 3.61 x10e6/uL (3.6-5.1); RED CELL DISTRIBUTION WIDTH 16.6 % (11.7-14.4)
[2021-12-13 06:43] LABS: ANION GAP 10.9 mmol/L (8-16); CALCIUM 7.7 mg/dL (8.4-10.2); CREATININE, SERUM 0.58 mg/dL (0.57-1.11)
[2021-12-13 06:46] LABS: POTASSIUM 2.9 mmol/L (3.5-5.1)
[2021-12-13] MEDS: INSULIN LISPRO 100 UNIT/1 ML 3ML VIAL SQ SCH ×4 (07:30→21:21)
[2021-12-13] MEDS: LEVOTHYROXINE SODIUM 125 MCG TAB PO SCH (07:30)
[2021-12-13 07:58] VITALS: BP 154/72
[2021-12-13] MEDS ORDERED: POTASSIUM CHLORIDE 20 MEQ TAB CR PO ONE ×2 (08:15→09:30)
[2021-12-13] MEDS: OLMESARTAN 20 MG TAB PO SCH (08:27)
[2021-12-13] MEDS: SITAGLIPTIN 100 MG TAB PO SCH (08:28)
[2021-12-13] MEDS: PRIMIDONE 50 MG TAB PO SCH ×2 (08:29→17:12)
[2021-12-13] MEDS: GABAPENTIN 100 MG CAP PO SCH (08:29)
[2021-12-13] MEDS: MONTELUKAST SODIUM 10 MG TAB PO SCH (08:30)
[2021-12-13] MEDS: NIFEDIPINE CR 30 MG TAB PO SCH (08:30)
[2021-12-13] MEDS: VANCOMYCIN HCL 125 MG CAPSULE PO SCH ×3 (12:45→23:53)
[2021-12-13 20:13] VITALS: BP 148/65
[2021-12-13] MEDS: ATORVASTATIN 20 MG TAB PO SCH (20:23)
[2021-12-13] MEDS: CITALOPRAM HYDROBROMIDE 20 MG TAB PO SCH (20:23)
[2021-12-13 21:00] VITALS: BP 148/65
[2021-12-13] MEDS: INSULIN ASPART 70/30 100 UNITS/ML VIAL SC SCH (21:19)
[2021-12-13 23:59] VITALS: BP 159/63
[2021-12-14] VITALS (7 sets, daily range): BP systolic 144–180; BP diastolic 54–99
[2021-12-14] MEDS: SODIUM CHLORIDE 0.9% 1000ML 1,000 ML IV SCH ×3 (02:21→23:15)
[2021-12-14] MEDS: LEVOTHYROXINE SODIUM 125 MCG TAB PO SCH (06:31)
[2021-12-14] MEDS: VANCOMYCIN HCL 125 MG CAPSULE PO SCH ×4 (06:31→23:15)
[2021-12-14] MEDS: INSULIN LISPRO 100 UNIT/1 ML 3ML VIAL SQ SCH ×4 (08:00→20:53)
[2021-12-14] MEDS: SITAGLIPTIN 100 MG TAB PO SCH (08:41)
[2021-12-14] MEDS: OLMESARTAN 20 MG TAB PO SCH (08:41)
[2021-12-14] MEDS: PRIMIDONE 50 MG TAB PO SCH ×2 (08:41→16:35)
[2021-12-14] MEDS: GABAPENTIN 100 MG CAP PO SCH (08:41)
[2021-12-14] MEDS: MONTELUKAST SODIUM 10 MG TAB PO SCH (08:41)
[2021-12-14] MEDS: NIFEDIPINE CR 30 MG TAB PO SCH (08:42)
[2021-12-14 15:45] LABS: ANION GAP 13.3 mmol/L (8-16); CALCIUM 7.9 mg/dL (8.4-10.2); CREATININE, SERUM 0.58 mg/dL (0.57-1.11); POTASSIUM 3.3 mmol/L (3.5-5.1)
[2021-12-14] MEDS: CITALOPRAM HYDROBROMIDE 20 MG TAB PO SCH (20:51)
[2021-12-14] MEDS: ATORVASTATIN 20 MG TAB PO SCH (20:52)
[2021-12-14] MEDS: INSULIN ASPART 70/30 100 UNITS/ML VIAL SC SCH (20:53)
[2021-12-14] MEDS: ACETAMINOPHEN 325 MG TAB PO PRN (23:07)
[2021-12-15] VITALS: BP 155/53
[2021-12-15 04:00] VITALS: BP 166/67
[2021-12-15] MEDS: LEVOTHYROXINE SODIUM 125 MCG TAB PO SCH (05:37)
[2021-12-15] MEDS: VANCOMYCIN HCL 125 MG CAPSULE PO SCH ×2 (05:37→12:06)
[2021-12-15 06:54] LABS: BASOPHILS % 0.4 % (0.0-1.0); EOSINOPHILS # (AUTO) 0.1 (0.0-0.4); EOSINOPHILS % 2.3 % (0.0-6.0); HEMOGLOBIN 9.3 g/dL (12.0-16.0); LYMPHOCYTES # (AUTO) 1.1 (1.0-3.2); LYMPHOCYTES % 23.2 % (18.0-39.1); MEAN CORPUSCULAR HEMOGLOBIN 24.5 pg (28-32); MEAN CORPUSCULAR VOLUME 78.9 fL (81-99); MONOCYTES # (AUTO) 0.4 (0.2-0.8); NEUTROPHILS # (AUTO) 3.1 (2.1-6.9); NEUTROPHILS % 65.3 % (38.7-80.0); PLATELET COUNT 248 x10e3/uL (140-360); RED CELL DISTRIBUTION WIDTH 16.8 % (11.7-14.4)
[2021-12-15 07:20] LABS: ANION GAP 10.5 mmol/L (8-16); BLOOD UREA NITROGEN < 5 mg/dL (7-26); CALCIUM 8.1 mg/dL (8.4-10.2); CARBON DIOXIDE 28 mmol/L (22-29); CHLORIDE 103 mmol/L (98-107); CREATININE, SERUM 0.56 mg/dL (0.57-1.11); EST GLOMERULAR FILTRATION RATE 104 ML/MIN (60-); GLUCOSE 185 mg/dL (74-118); POTASSIUM 3.5 mmol/L (3.5-5.1); SODIUM 138 mmol/L (136-145)
[2021-12-15 07:22] LABS: BUN/CREATININE RATIO 9 (6-25)
[2021-12-15] MEDS: INSULIN LISPRO 100 UNIT/1 ML 3ML VIAL SQ SCH ×2 (07:30→12:04)
[2021-12-15 08:00] VITALS: BP 166/67
[2021-12-15 08:59] VITALS: BP 168/57
[2021-12-15] MEDS: NIFEDIPINE CR 30 MG TAB PO SCH (09:00)
[2021-12-15] MEDS: GABAPENTIN 100 MG CAP PO SCH (09:00)
[2021-12-15] MEDS: PRIMIDONE 50 MG TAB PO SCH (09:00)
[2021-12-15] MEDS: OLMESARTAN 20 MG TAB PO SCH (09:00)
[2021-12-15] MEDS: SITAGLIPTIN 100 MG TAB PO SCH (09:00)
[2021-12-15] MEDS: MONTELUKAST SODIUM 10 MG TAB PO SCH (09:00)
[2021-12-15] MEDS ORDERED: SODIUM CHLORIDE 0.9% 1000ML 1,000 ML ONE (11:01)
[2021-12-15 12:24] VITALS: BP 187/76
[2021-12-15] MEDS ORDERED: CELEXA20 MG PO (13:11)
[2021-12-15] MEDS ORDERED: HIPREX1 GM EXT (13:14)
[2021-12-15] MEDS ORDERED: FLAGYL375 MG PO (13:18)
[2021-12-15] MEDS ORDERED: ceftin PO (14:59)
== END 2021-12-15 16:44 | disposition home or self-care (01) | DRG 872 ==
LOC: ER 09:08 → ERHOLD 11:31 → MED/SURG2 15:07
PROVIDERS: ADMIT Internal Medicine; ATTEND Internal Medicine
DX: A41.9 Sepsis, unspecified organism (principal); E87.1 Hypo-osmolality and hyponatremia; N17.9 Acute kidney failure, unspecified; K52.1 Toxic gastroenteritis and colitis; N13.6 Pyonephrosis; N20.0 Calculus of kidney; E83.51 Hypocalcemia; B96.5 Pseudomonas (aeruginosa) (mallei) (pseudomallei) as the cause of diseases classified elsewhere; E11.65 Type 2 diabetes mellitus with hyperglycemia; E86.0 Dehydration; I10 Essential (primary) hypertension; E66.9 Obesity, unspecified; Z68.34 Body mass index [BMI] 34.0-34.9, adult; T36.8X5A Adverse effect of other systemic antibiotics, initial encounter; E03.9 Hypothyroidism, unspecified; F41.9 Anxiety disorder, unspecified; F32.A Depression, unspecified; D64.9 Anemia, unspecified; E87.6 Hypokalemia; Z20.822 Contact with and (suspected) exposure to COVID-19; K21.9 Gastro-esophageal reflux disease without esophagitis; E78.5 Hyperlipidemia, unspecified; Z82.49 Family history of ischemic heart disease and other diseases of the circulatory system; Z79.84 Long term (current) use of oral hypoglycemic drugs; Z79.4 Long term (current) use of insulin; Z88.0 Allergy status to penicillin
CPT/HCPCS: 36415; 71045; 74177; 80048; 80053; 81001; 82550; 82553; 82948; 83605; 83735; 83880; 84484; 85025; 85610; 85730; 87040; 87086; 87186; 87493; 93005; 94799; 96372; 99284; J0360; J1815; J2185; J2405; J7030; J7050; Q9967; U0002

== ENCOUNTER 2022-04-12 17:27 | Emergency (ER) | payer MEDICARE, OTHER ==
[~2022-04-12] VITALS: Ht 157.5 cm; Wt 84.8 kg
[~2022-04-12 17:27] MED LIST changes: +ASPIRIN CHEW81 MG PO; +CELEXA20 MG PO; +FLAGYL375 MG PO; +GABAPENTIN100 MG PO; +HIPREX1 GM EXT; +HYDROCHLOROTH12.5 MG; +JANUVIA100 MG PO; +MIRTAZAPINE15 MG PO; +MONTELUKAST SOD10 MG PO; +ceftin PO
[2022-04-12 17:59] LABS: BASOPHILS # (AUTO) 0.1 (0.0-0.1); BASOPHILS % 0.2 % (0.0-1.0); HEMATOCRIT 33.2 % (34.2-44.1); HEMOGLOBIN 10.4 g/dL (12.0-16.0); LYMPHOCYTES # (AUTO) 0.7 (1.0-3.2); LYMPHOCYTES % 3.4 % (18.0-39.1); MEAN CORPUSCULAR HEMOGLOBIN 24.2 pg (28-32); MEAN CORPUSCULAR HGB CONC 31.3 g/dL (31-35); MEAN CORPUSCULAR VOLUME 77.2 fL (81-99); MONOCYTES # (AUTO) 0.6 (0.2-0.8); MONOCYTES % 3.1 % (4.4-11.3); NEUTROPHILS % 92.4 % (38.7-80.0); PLATELET COUNT 375 x10e3/uL (140-360); RED CELL DISTRIBUTION WIDTH 17.2 % (11.7-14.4)
[2022-04-12] MEDS ORDERED: SODIUM CHLORIDE 0.9% 1000ML 1,000 ML IV ONE ×2 (18:00→20:00)
[2022-04-12] MEDS ORDERED: ACETAMINOPHEN 325 MG TAB PO NR (18:00)
[2022-04-12] MEDS ORDERED: ACETAMINOPHEN 325 MG TAB ONE (18:09)
[2022-04-12 18:15] LABS: ALBUMIN 3.8 g/dL (3.5-5.0); ALBUMIN/GLOBULIN RATIO 1.1 (0.8-2.0); ANION GAP 21.8 mmol/L (8-16); CREATININE, SERUM 0.9 mg/dL (0.57-1.11); POTASSIUM 3.8 mmol/L (3.5-5.1)
[2022-04-12 18:15] LABS: CLARITY,URINE CLEAR (CLEAR); COLOR,URINE YELLOW (YELLOW); KETONES,URINE 2+ (NEGATIVE); LEUKOCYTE ESTERASE ,URINE NEGATIVE (NEGATIVE); NITRITE,URINE NEGATIVE (NEGATIVE); PROTEIN,URINE DIPSTICK NEGATIVE (NEGATIVE); URINE UROBILINOGEN 0.2 mg/dL (0.2 - 1)
[2022-04-12 18:17] LABS: CALCIUM 9.4 mg/dL (8.4-10.2)
[2022-04-12 18:21] LABS: BACTERIA,URINE FEW /HPF; EPITHELIAL CELLS,URINE FEW /LPF; MUCUS,URINE FEW (RARE); RBC,URINE >50 /HPF (0-5); WBC,URINE (MAN) 21-50 /HPF (0-5)
[2022-04-12] MEDS ORDERED: KETOROLAC TROMETHAMINE 30 MG/ML VIAL IV ONE (19:00)
[2022-04-12] MEDS ORDERED: SODIUM CHLORIDE 0.9% 1000ML 1,000 ML IV SCH (20:00)
[2022-04-12 20:06] LABS: INR 0.8; PROTHROMBIN TIME 11.8 seconds (11.9-14.5)
[2022-04-12 20:07] LABS: PARTIAL THROMBOPLASTIN TIME 26.7 seconds (23.8-35.5)
[2022-04-12] MEDS ORDERED: IBUPROFEN 800MG/ 200ML 800 MG in SODIUM CHLORIDE 0.9% 250ML 250 ML IV ONE (22:15)
[2022-04-12] MEDS ORDERED: IBUPROFEN 600 MG TAB PO STA (22:15)
== END 2022-04-12 23:51 | disposition other institution (70) ==
LOC: ER 17:43
DX: A41.9 Sepsis, unspecified organism (principal); R50.9 Fever, unspecified; N10 Acute pyelonephritis; N20.1 Calculus of ureter; E11.65 Type 2 diabetes mellitus with hyperglycemia; I51.7 Cardiomegaly; R16.0 Hepatomegaly, not elsewhere classified; N39.0 Urinary tract infection, site not specified; F41.9 Anxiety disorder, unspecified; K21.9 Gastro-esophageal reflux disease without esophagitis; E78.5 Hyperlipidemia, unspecified; I10 Essential (primary) hypertension; R94.31 Abnormal electrocardiogram [ECG] [EKG]; Z20.822 Contact with and (suspected) exposure to COVID-19
CPT/HCPCS: 0223U; 36415; 71045; 74176; 80053; 81001; 83605; 83690; 84484; 85025; 85610; 85730; 87040; 87071; 87205; 99284; J1885; J2185; J7030; U0002; 87186; 93005

== ENCOUNTER 2022-04-21 17:05 | Emergency (ER) | payer MEDICARE, OTHER, MEDICAID ==
[~2022-04-21] VITALS: Ht 157.5 cm; Wt 84.8 kg
[2022-04-21] MEDS ORDERED: DIFLUCAN100 MG PO (20:30)
== END 2022-04-21 20:35 | disposition home or self-care (01) ==
LOC: ER 17:40
DX: T82.594A Other mechanical complication of infusion catheter, initial encounter (principal); I10 Essential (primary) hypertension; E11.9 Type 2 diabetes mellitus without complications; E78.5 Hyperlipidemia, unspecified; I50.9 Heart failure, unspecified; E03.9 Hypothyroidism, unspecified; K21.9 Gastro-esophageal reflux disease without esophagitis; F41.9 Anxiety disorder, unspecified; F32.A Depression, unspecified
CPT/HCPCS: 99282

== ENCOUNTER 2022-09-19 12:22 | Emergency (ER) | payer MEDICARE, OTHER, MEDICAID ==
[~2022-09-19] VITALS: Ht 157.5 cm; Wt 84.8 kg
[~2022-09-19 12:22] MED LIST changes: +DIFLUCAN100 MG PO
[2022-09-19] MEDS ORDERED: KETOROLAC TROMETHAMINE 30 MG/ML VIAL IV STA (13:34)
[2022-09-19] MEDS ORDERED: ONDANSETRON HCL INJ 2MG/ML 2ML 2 MG/ML VIAL IV STA (13:34)
[2022-09-19] MEDS ORDERED: SODIUM CHLORIDE 0.9% 1000ML 1,000 ML IV STA (13:34)
[2022-09-19 14:01] LABS: BASOPHILS % 0.7 % (0.0-1.0); EOSINOPHILS # (AUTO) 0.1 (0.0-0.4); EOSINOPHILS % 0.8 % (0.0-6.0); HEMATOCRIT 32.5 % (34.2-44.1); HEMOGLOBIN 9.3 g/dL (12.0-16.0); LYMPHOCYTES # (AUTO) 1.4 (1.0-3.2); LYMPHOCYTES % 22.7 % (18.0-39.1); MEAN CORPUSCULAR HEMOGLOBIN 22.4 pg (28-32); MEAN CORPUSCULAR HGB CONC 28.6 g/dL (31-35); MEAN CORPUSCULAR VOLUME 78.3 fL (81-99); MONOCYTES # (AUTO) 0.3 (0.2-0.8); MONOCYTES % 5.4 % (4.4-11.3); NEUTROPHILS # (AUTO) 4.3 (2.1-6.9); NEUTROPHILS % 70.1 % (38.7-80.0); PLATELET COUNT 309 x10e3/uL (140-360); RED BLOOD COUNT 4.15 x10e6/uL (3.6-5.1); RED CELL DISTRIBUTION WIDTH 17.1 % (11.7-14.4)
[2022-09-19 14:23] LABS: ALANINE AMINOTRANSFERASE 19 IU/L (0-55); ALBUMIN 3.8 g/dL (3.5-5.0); ALBUMIN/GLOBULIN RATIO 1.2 (0.8-2.0); ALKALINE PHOSPHATASE 99 IU/L (40-150); ANION GAP 12.8 mmol/L (8-16); BLOOD UREA NITROGEN 12 mg/dL (7-26); BUN/CREATININE RATIO 19 (6-25); CALCIUM 9.3 mg/dL (8.4-10.2); CARBON DIOXIDE 28 mmol/L (22-29); CHLORIDE 95 mmol/L (98-107); CREATINE KINASE 54 IU/L (29-168); CREATININE, SERUM 0.62 mg/dL (0.57-1.11); GLUCOSE 169 mg/dL (74-118); LIPASE 25 U/L (8-78); POTASSIUM 3.8 mmol/L (3.5-5.1); SODIUM 132 mmol/L (136-145)
[2022-09-19 14:30] LABS: CLARITY,URINE CLEAR (CLEAR); COLOR,URINE YELLOW (YELLOW); KETONES,URINE NEGATIVE (NEGATIVE); LEUKOCYTE ESTERASE ,URINE NEGATIVE (NEGATIVE); NITRITE,URINE NEGATIVE (NEGATIVE); PROTEIN,URINE DIPSTICK NEGATIVE (NEGATIVE); URINE UROBILINOGEN 0.2 mg/dL (0.2 - 1)
[2022-09-19 14:33] LABS: BACTERIA,URINE RARE /HPF; EPITHELIAL CELLS,URINE RARE /LPF; RENAL EPITHELIAL CELLS,URINE RARE
[2022-09-19] MEDS ORDERED: IOPAMIDOL 370 MG/ML 100 ML INFUS..BTL INJ ONE (14:51)
[2022-09-19] MEDS ORDERED: ONDANSETRON ODT4 MG PO (16:43)
[2022-09-19] MEDS ORDERED: DICYCLOMINE HCL10 MG PO (16:43)
== END 2022-09-19 17:03 | disposition home or self-care (01) ==
LOC: ER 12:35
DX: R10.30 Lower abdominal pain, unspecified (principal); M54.50 Low back pain, unspecified; I10 Essential (primary) hypertension; E11.65 Type 2 diabetes mellitus with hyperglycemia; I50.9 Heart failure, unspecified; E78.5 Hyperlipidemia, unspecified; E03.9 Hypothyroidism, unspecified; K21.9 Gastro-esophageal reflux disease without esophagitis; F41.9 Anxiety disorder, unspecified; Z20.822 Contact with and (suspected) exposure to COVID-19
CPT/HCPCS: 36415; 71045; 74177; 80053; 81001; 82550; 82553; 83690; 84484; 85025; 99284; J1885; J2405; J7030; Q9967; U0002

== ENCOUNTER 2024-03-06 13:26 | Emergency (ER) | payer MEDICARE, MEDICAID ==
[~2024-03-06] VITALS: Ht 160 cm; Wt 79.4 kg
[~2024-03-06 13:26] MED LIST changes: +AZITHROMYCIN250 MG PO; +DICYCLOMINE HCL10 MG PO; +DICYCLOMINE HCL20 MG PO; +FLOMAX0.4 MG PO; +HUMALOG MI100 UNIT/2 SQ; +ONDANSETRON ODT4 MG PO; +ONDANSETRON ODT4 MG SL; +PANTOPRAZOLE SO40 MG PO; +PAXLOVID 300-11 EAC1 PO; +SYMBICORT 80-10.2 GM INH; +VENTOLIN HFA18 GM INH; +VITAMIN D31 ML
[2024-03-06 14:06] VITALS: PULSE 76; RESP 17; TEMP 98.6; O2SAT 97
[2024-03-06] MEDS ORDERED: CIPRO250 MG PO (14:24)
[2024-03-06 14:54] LABS: BILIRUBIN,URINE NEGATIVE (NEGATIVE); CLARITY,URINE CLOUDY (CLEAR); COLOR,URINE YELLOW (YELLOW); GLUCOSE, URINE 500 (NEGATIVE); KETONES,URINE NEGATIVE (NEGATIVE); LEUKOCYTE ESTERASE ,URINE 2+ (NEGATIVE); NITRITE,URINE POSITIVE (NEGATIVE); PH,URINE 6.5 (5 - 7); PROTEIN,URINE DIPSTICK 1+ (NEGATIVE); URINE UROBILINOGEN 0.2 mg/dL (0.2 - 1)
[2024-03-06 15:15] LABS: BACTERIA,URINE MANY /HPF; EPITHELIAL CELLS,URINE FEW /LPF; RENAL EPITHELIAL CELLS,URINE MANY; TRANSITIONAL EPI CELLS,URINE FEW; WBC,URINE (MAN) >50 /HPF (0-5)
== END 2024-03-06 14:38 | disposition home or self-care (01) ==
LOC: ER 13:42
DX: R30.0 Dysuria (principal); N39.0 Urinary tract infection, site not specified; I10 Essential (primary) hypertension; E11.9 Type 2 diabetes mellitus without complications; I50.9 Heart failure, unspecified; E78.5 Hyperlipidemia, unspecified; E03.9 Hypothyroidism, unspecified; D64.9 Anemia, unspecified; K21.9 Gastro-esophageal reflux disease without esophagitis; F41.9 Anxiety disorder, unspecified; F32.A Depression, unspecified
CPT/HCPCS: 81001; 87086; 87186; 99282

== ENCOUNTER 2024-03-10 01:09 | Emergency (ER) | payer MEDICARE, MEDICAID ==
[~2024-03-10] VITALS: Ht 160 cm; Wt 79.4 kg
[~2024-03-10 01:09] MED LIST changes: +CIPRO250 MG PO
[2024-03-10 04:40] VITALS: PULSE 71; RESP 16; TEMP 97.6; O2SAT 97
== END 2024-03-10 04:42 | disposition home or self-care (01) ==
LOC: ER 01:41
DX: S00.83XA Contusion of other part of head, initial encounter (principal); S63.591A Other specified sprain of right wrist, initial encounter; S70.01XA Contusion of right hip, initial encounter; W01.0XXA Fall on same level from slipping, tripping and stumbling without subsequent striking against object, initial encounter; Y93.01 Activity, walking, marching and hiking; Y92.89 Other specified places as the place of occurrence of the external cause; I10 Essential (primary) hypertension; E11.9 Type 2 diabetes mellitus without complications; E78.5 Hyperlipidemia, unspecified; I50.9 Heart failure, unspecified; E03.9 Hypothyroidism, unspecified; D64.9 Anemia, unspecified; K21.9 Gastro-esophageal reflux disease without esophagitis; F41.9 Anxiety disorder, unspecified
CPT/HCPCS: 70450; 70486; 72125; 99283

== ENCOUNTER 2024-06-29 17:40 | Inpatient (IN) | payer MEDICARE ==
[~2024-06-29] VITALS: Ht 157.5 cm; Wt 81.1 kg
[2024-06-29 18:22] LABS: BASOPHILS % 0.6 % (0.0-1.0); EOSINOPHILS # (AUTO) 0.1 (0.0-0.4); EOSINOPHILS % 0.9 % (0.0-6.0); HEMATOCRIT 36.1 % (34.2-44.1); LYMPHOCYTES # (AUTO) 1.1 (1.0-3.2); MEAN CORPUSCULAR HEMOGLOBIN 30.7 pg (28-32); MEAN CORPUSCULAR HGB CONC 33.2 g/dL (31-35); MEAN CORPUSCULAR VOLUME 92.3 fL (81-99); MONOCYTES # (AUTO) 0.4 (0.2-0.8); MONOCYTES % 5.8 % (4.4-11.3); NEUTROPHILS # (AUTO) 4.8 (2.1-6.9); NEUTROPHILS % 75.2 % (38.7-80.0); PLATELET COUNT 246 x10e3/uL (140-360); RED BLOOD COUNT 3.91 x10e6/uL (3.6-5.1); RED CELL DISTRIBUTION WIDTH 13.2 % (11.7-14.4); WHITE BLOOD COUNT 6.41 x10e3/uL (4.8-10.8)
[2024-06-29 18:50] LABS: ALBUMIN 3.8 g/dL (3.5-5.0); ALBUMIN/GLOBULIN RATIO 1.3 (0.8-2.0); ANION GAP 15.1 mmol/L (8-16); BILIRUBIN,TOTAL 0.3 mg/dL (0.2-1.2); CALCIUM 9.3 mg/dL (8.4-10.2); CREATININE, SERUM 0.67 mg/dL (0.57-1.11); TOTAL PROTEIN 6.7 g/dL (6.5-8.1)
[2024-06-29 18:54] LABS: POTASSIUM 3.1 mmol/L (3.5-5.1)
[2024-06-29 18:55] LABS: TROPONIN I 0.048 ng/mL (0-0.300)
[2024-06-29] MEDS ORDERED: ONDANSETRON HCL INJ 2MG/ML 2ML 2 MG/ML VIAL IV PRN (19:45)
[2024-06-29] MEDS ORDERED: Morphine 2mg Syringe 2 MG/ML SYR IV PRN (19:45)
[2024-06-29 21:19] VITALS: PULSE 76; RESP 16; TEMP 97.8
[2024-06-30] VITALS (8 sets, daily range): BP systolic 122–158; BP diastolic 53–68; PULSE 60–76; RESP 16–17; TEMP 97.3–98.2; O2SAT 95–98
[2024-06-30] MEDS ORDERED: MIRTAZAPINE7.5 MG PO (00:01)
[2024-06-30] MEDS: SODIUM CHLORIDE 0.9% 1000ML 1,000 ML IV SCH (00:08)
[2024-06-30] MEDS: SODIUM CHLORIDE 0.9% 1000ML 1,000 ML IV STA (00:08)
[2024-06-30] MEDS ORDERED: DOXAZOSIN MESYLA2 MG PO (04:28)
[2024-06-30] MEDS ORDERED: DEXLANSOPRAZOLE60 MG (04:28)
[2024-06-30] MEDS ORDERED: BENZONATATE100 MG PO (04:28)
[2024-06-30 05:59] LABS: BLOOD UREA NITROGEN 10 mg/dL (7-26); GLUCOSE 158 mg/dL (74-118); OSMOLALITY,SERUM 250 mOsm/kg (278-305); SODIUM 123 mmol/L (136-145)
[2024-06-30 06:26] LABS: BASOPHILS % 0.7 % (0.0-1.0); EOSINOPHILS # (AUTO) 0.1 (0.0-0.4); EOSINOPHILS % 1.1 % (0.0-6.0); HEMATOCRIT 31.9 % (34.2-44.1); HEMOGLOBIN 11.2 g/dL (12.0-16.0); LYMPHOCYTES # (AUTO) 1.1 (1.0-3.2); LYMPHOCYTES % 20.3 % (18.0-39.1); MEAN CORPUSCULAR HEMOGLOBIN 31.3 pg (28-32); MEAN CORPUSCULAR HGB CONC 35.1 g/dL (31-35); MEAN CORPUSCULAR VOLUME 89.1 fL (81-99); MONOCYTES # (AUTO) 0.4 (0.2-0.8); NEUTROPHILS # (AUTO) 3.7 (2.1-6.9); NEUTROPHILS % 69.5 % (38.7-80.0); PLATELET COUNT 211 x10e3/uL (140-360); RED BLOOD COUNT 3.58 x10e6/uL (3.6-5.1); RED CELL DISTRIBUTION WIDTH 13.2 % (11.7-14.4); WHITE BLOOD COUNT 5.36 x10e3/uL (4.8-10.8)
[2024-06-30 06:59] LABS: ALBUMIN 3.2 g/dL (3.5-5.0); ALBUMIN/GLOBULIN RATIO 1.3 (0.8-2.0); ANION GAP 10.7 mmol/L (8-16); BILIRUBIN,TOTAL 0.4 mg/dL (0.2-1.2); CALCIUM 8.8 mg/dL (8.4-10.2); CREATININE, SERUM 0.62 mg/dL (0.57-1.11); TOTAL PROTEIN 5.7 g/dL (6.5-8.1)
[2024-06-30 07:20] LABS: POTASSIUM 2.7 mmol/L (3.5-5.1)
[2024-06-30 07:23] LABS: TROPONIN I 0.051 ng/mL (0-0.300)
[2024-06-30] MEDS: POTASSIUM CHLORIDE 10MEQ EA PO ONE (09:17)
[2024-06-30 09:29] LABS: CHOL/HDL RATIO 2.9 (3.0-3.6); MAGNESIUM 1.7 MG/DL (1.3-2.1)
[2024-06-30] MEDS: METOPROLOL TARTRATE 25 MG TAB PO SCH (09:44)
[2024-06-30] MEDS: ASPIRIN 81 MG ENTERIC COATED PO SCH (09:44)
[2024-06-30] MEDS ORDERED: DEXTROSE 50% SYRINGE 50 ML IV PRN (09:45)
[2024-06-30 09:49] LABS: THYROID STIMULATING HORMONE 1.853 uIU/mL (0.350-4.940)
[2024-06-30] MEDS: SODIUM CHLORIDE 1 GM TAB PO SCH (11:43)
[2024-06-30] MEDS: KCL 20MEQ/.9 SOD CHL 1,000 ML IV SCH (11:43)
[2024-06-30] MEDS: POTASSIUM CHLORIDE 20 MEQ TAB CR PO SCH (11:43)
[2024-06-30] MEDS: INSULIN LISPRO 100 UNIT/1 ML 3ML VIAL SQ SCH (11:54)
[2024-06-30 15:37] LABS: TROPONIN I 0.032 ng/mL (0-0.300)
[2024-06-30] MEDS: ENOXAPARIN SOD INJ 40 MG/0.4 ML SYR SC SCH (16:58)
[2024-07-01] VITALS (9 sets, daily range): BP systolic 125–183; BP diastolic 59–93; PULSE 52–82; RESP 16–19; TEMP 97.3–99.2; O2SAT 95–98
[2024-07-01 06:37] LABS: AMPHETAMINES SCREEN,URINE NEGATIVE (NEGATIVE); BENZODIAZEPINES SCREEN,URINE POSITIVE (NEGATIVE); CANNABINOIDS SCREEN,URINE NEGATIVE (NEGATIVE); COCAINE SCREEN,URINE NEGATIVE (NEGATIVE); METHADONE SCREEN, URINE NEGATIVE (NEGATIVE); OPIATES SCREEN,URINE NEGATIVE (NEGATIVE); PHENCYCLIDINE SCREEN,URINE NEGATIVE (NEGATIVE)
[2024-07-01] MEDS: LEVOTHYROXINE SODIUM 125 MCG TAB PO SCH (09:17)
[2024-07-01 11:18] LABS: ANION GAP 12.5 mmol/L (8-16); CREATININE, SERUM 0.63 mg/dL (0.57-1.11); POTASSIUM 3.5 mmol/L (3.5-5.1)
[2024-07-01] MEDS: MAGNESIUM SULFATE 2GM/50ML 50 ML IV ONE (11:50)
[2024-07-02] VITALS (11 sets, daily range): BP systolic 151–195; BP diastolic 50–91; PULSE 42–94; RESP 18–20; TEMP 98.1–98.8; O2SAT 95–99
[2024-07-02] MEDS: ACETAMINOPHEN 325 MG TAB PO PRN (01:20)
[2024-07-02 06:43] LABS: BASOPHILS % 0.5 % (0.0-1.0); EOSINOPHILS # (AUTO) 0.1 (0.0-0.4); EOSINOPHILS % 0.6 % (0.0-6.0); HEMATOCRIT 33.7 % (34.2-44.1); LYMPHOCYTES # (AUTO) 1.4 (1.0-3.2); LYMPHOCYTES % 17.7 % (18.0-39.1); MEAN CORPUSCULAR HEMOGLOBIN 31.3 pg (28-32); MEAN CORPUSCULAR HGB CONC 32.6 g/dL (31-35); MONOCYTES # (AUTO) 0.4 (0.2-0.8); MONOCYTES % 4.4 % (4.4-11.3); NEUTROPHILS # (AUTO) 6.2 (2.1-6.9); NEUTROPHILS % 76.2 % (38.7-80.0); PLATELET COUNT 223 x10e3/uL (140-360); RED BLOOD COUNT 3.51 x10e6/uL (3.6-5.1); RED CELL DISTRIBUTION WIDTH 13.8 % (11.7-14.4)
[2024-07-02 07:00] LABS: ALBUMIN 3.3 g/dL (3.5-5.0); ALBUMIN/GLOBULIN RATIO 1.4 (0.8-2.0); ANION GAP 12.1 mmol/L (8-16); BILIRUBIN,TOTAL 0.4 mg/dL (0.2-1.2); CALCIUM 8.8 mg/dL (8.4-10.2); CREATININE, SERUM 0.58 mg/dL (0.57-1.11); TOTAL PROTEIN 5.7 g/dL (6.5-8.1)
[2024-07-02 07:01] LABS: POTASSIUM 3.1 mmol/L (3.5-5.1)
[2024-07-02] MEDS: POTASSIUM CHLORIDE 20 MEQ TAB CR PO ONE (08:49)
[2024-07-02] MEDS: NIFEDIPINE CR 30 MG TAB PO SCH ×2 (08:49→16:34)
[2024-07-02] MEDS ORDERED: SODIUM CHLORIDE 1 GM TAB PO SCH (10:00)
[2024-07-02] MEDS ORDERED: NIFEDIPINE CR 30 MG TAB PO SCH (10:00)
[2024-07-02] MEDS: POTASSIUM CHLORIDE 20MEQ/100ML 200 ML IV ONE (10:50)
[2024-07-02] MEDS: ALPRAZOLAM 0.5 MG TAB PO SCH (12:07)
[2024-07-02] MEDS: HYDRALAZINE HCL 20 MG/ML VIAL IV PRN (12:08)
[2024-07-02] MEDS: PRIMIDONE 50 MG TAB PO SCH ×2 (12:10→21:27)
[2024-07-02] MEDS: FAMOTIDINE 20 MG TAB PO SCH (16:34)
[2024-07-02] MEDS ORDERED: PRIMIDONE 50 MG TAB PO SCH (17:00)
[2024-07-02] MEDS: DOXAZOSIN MESYLATE 2 MG TAB PO SCH (21:26)
[2024-07-02] MEDS: MIRTAZAPINE 15 MG TAB PO SCH (21:28)
[2024-07-03 03:55] VITALS: BP 162/49; PULSE 51; RESP 20; TEMP 99.7; O2SAT 96
[2024-07-03 06:48] LABS: BASOPHILS # (AUTO) 0.1 (0.0-0.1); BASOPHILS % 0.5 % (0.0-1.0); EOSINOPHILS % 0.2 % (0.0-6.0); HEMATOCRIT 35.1 % (34.2-44.1); HEMOGLOBIN 11.9 g/dL (12.0-16.0); LYMPHOCYTES # (AUTO) 0.9 (1.0-3.2); LYMPHOCYTES % 8.3 % (18.0-39.1); MEAN CORPUSCULAR HEMOGLOBIN 31.4 pg (28-32); MEAN CORPUSCULAR HGB CONC 33.9 g/dL (31-35); MEAN CORPUSCULAR VOLUME 92.6 fL (81-99); MONOCYTES # (AUTO) 0.6 (0.2-0.8); NEUTROPHILS # (AUTO) 9.5 (2.1-6.9); NEUTROPHILS % 85.4 % (38.7-80.0); PLATELET COUNT 240 x10e3/uL (140-360); RED BLOOD COUNT 3.79 x10e6/uL (3.6-5.1); WHITE BLOOD COUNT 11.09 x10e3/uL (4.8-10.8)
[2024-07-03 07:02] LABS: ANION GAP 18.3 mmol/L (8-16); CALCIUM 9.5 mg/dL (8.4-10.2); CREATININE, SERUM 0.68 mg/dL (0.57-1.11)
[2024-07-03 07:35] LABS: POTASSIUM 3.3 mmol/L (3.5-5.1)
[2024-07-03] MEDS: SODIUM CHLORIDE 1 GM TAB PO SCH (09:00)
[2024-07-03] MEDS: POTASSIUM CHLORIDE 20 MEQ TAB CR PO STA (09:00)
[2024-07-03] MEDS ORDERED: HYDROCHLOROTHIAZIDE 25 MG TAB PO SCH (09:00)
[2024-07-03] MEDS ORDERED: AMLODIPINE BESYLATE 10 MG TAB PO SCH (09:00)
[2024-07-03] MEDS: OLMESARTAN 20 MG TAB PO SCH (09:01)
[2024-07-03 09:16] VITALS: BP 158/54; PULSE 53; RESP 20; TEMP 99; O2SAT 95
[2024-07-03] MEDS ORDERED: POTASSIUM CHLORIDE 10MEQ EA PO ONE (11:00)
== END 2024-07-03 11:26 | disposition home or self-care (01) | DRG 641 ==
LOC: ER 18:05 → ERHOLD 19:43 → MED/SURG2 23:09 → OBSVTOIN 07-01 15:43
PROVIDERS: ADMIT Internal Medicine; ATTEND Internal Medicine
DX: E87.1 Hypo-osmolality and hyponatremia (principal); I50.32 Chronic diastolic (congestive) heart failure; I11.0 Hypertensive heart disease with heart failure; T46.5X5A Adverse effect of other antihypertensive drugs, initial encounter; Y92.009 Unspecified place in unspecified non-institutional (private) residence as the place of occurrence of the external cause; E11.65 Type 2 diabetes mellitus with hyperglycemia; E87.6 Hypokalemia; E87.3 Alkalosis; R00.1 Bradycardia, unspecified; G93.9 Disorder of brain, unspecified; R53.81 Other malaise; K21.9 Gastro-esophageal reflux disease without esophagitis; E78.5 Hyperlipidemia, unspecified; F41.8 Other specified anxiety disorders; D64.9 Anemia, unspecified; E03.9 Hypothyroidism, unspecified; I35.0 Nonrheumatic aortic (valve) stenosis; I25.10 Atherosclerotic heart disease of native coronary artery without angina pectoris; Z96.649 Presence of unspecified artificial hip joint; Z96.659 Presence of unspecified artificial knee joint; Z86.73 Personal history of transient ischemic attack (TIA), and cerebral infarction without residual deficits; Z79.899 Other long term (current) drug therapy; Z79.84 Long term (current) use of oral hypoglycemic drugs
CPT/HCPCS: 36415; 70450; 71045; 80048; 80053; 80061; 80307; 80320; 82550; 82947; 82948; 83735; 83880; 83935; 84295; 84300; 84443; 84484; 84520; 84550; 85025; 93005; 93306; 93880; 99252; 99284; G0378; J0360; J1650; J3475; J3480; J7030

== ENCOUNTER 2024-09-29 18:33 | Emergency (ER) | payer MEDICARE, OTHER ==
[~2024-09-29] VITALS: Ht 157.5 cm; Wt 80.7 kg
[~2024-09-29 18:33] MED LIST changes: +BENZONATATE100 MG PO; +DEXLANSOPRAZOLE60 MG; +DOXAZOSIN MESYLA2 MG PO; +MIRTAZAPINE7.5 MG PO
[2024-09-29 18:59] VITALS: TEMP 98.7
[2024-09-29 19:40] LABS: BASOPHILS # (AUTO) 0.1 (0.0-0.1); BASOPHILS % 0.6 % (0.0-1.0); EOSINOPHILS # (AUTO) 0.1 (0.0-0.4); EOSINOPHILS % 1.3 % (0.0-6.0); HEMATOCRIT 38.4 % (34.2-44.1); HEMOGLOBIN 12.6 g/dL (12.0-16.0); LYMPHOCYTES # (AUTO) 1.5 (1.0-3.2); LYMPHOCYTES % 19.3 % (18.0-39.1); MEAN CORPUSCULAR HEMOGLOBIN 30.3 pg (28-32); MEAN CORPUSCULAR HGB CONC 32.8 g/dL (31-35); MEAN CORPUSCULAR VOLUME 92.3 fL (81-99); MONOCYTES # (AUTO) 0.4 (0.2-0.8); MONOCYTES % 4.6 % (4.4-11.3); NEUTROPHILS # (AUTO) 5.9 (2.1-6.9); NEUTROPHILS % 73.7 % (38.7-80.0); PLATELET COUNT 316 x10e3/uL (140-360); RED BLOOD COUNT 4.16 x10e6/uL (3.6-5.1); RED CELL DISTRIBUTION WIDTH 13.7 % (11.7-14.4); WHITE BLOOD COUNT 7.97 x10e3/uL (4.8-10.8)
[2024-09-29 19:48] LABS: CLARITY,URINE CLEAR (CLEAR); COLOR,URINE YELLOW (YELLOW); GLUCOSE, URINE NEGATIVE (NEGATIVE); KETONES,URINE NEGATIVE (NEGATIVE); LEUKOCYTE ESTERASE ,URINE NEGATIVE (NEGATIVE); NITRITE,URINE POSITIVE (NEGATIVE); PH,URINE 7 (5 - 7); PROTEIN,URINE DIPSTICK TRACE (NEGATIVE); URINE UROBILINOGEN 0.2 mg/dL (0.2 - 1)
[2024-09-29 19:49] LABS: BILIRUBIN,URINE NEGATIVE (NEGATIVE)
[2024-09-29 19:55] LABS: ALBUMIN 3.5 g/dL (3.5-5.0); ALBUMIN/GLOBULIN RATIO 1.1 (0.8-2.0); ANION GAP 17.7 mmol/L (8-16); BILIRUBIN,TOTAL 0.4 mg/dL (0.2-1.2); CALCIUM 9.8 mg/dL (8.4-10.2); CREATININE, SERUM 0.69 mg/dL (0.57-1.11); TOTAL PROTEIN 6.8 g/dL (6.5-8.1)
[2024-09-29 19:58] LABS: BACTERIA,URINE RARE /HPF; EPITHELIAL CELLS,URINE FEW /LPF; WBC,URINE (MAN) 0-5 /HPF (0-5)
[2024-09-29 19:59] LABS: TROPONIN I 0.038 ng/mL (0-0.300)
[2024-09-29 20:00] LABS: POTASSIUM 2.7 mmol/L (3.5-5.1)
[2024-09-29] MEDS: ONDANSETRON HCL INJ 2MG/ML 2ML 2 MG/ML VIAL IV STA (20:06)
[2024-09-29] MEDS: Morphine 4mg INJECTION 4 MG/ML INJ IV ONE (20:07)
[2024-09-29 20:15] VITALS: RESP 16
[2024-09-29] MEDS ORDERED: IOPAMIDOL 370 MG/ML 100 ML INFUS..BTL INJ ONE (20:21)
[2024-09-29] MEDS: POTASSIUM CHLORIDE 20 MEQ TAB CR PO STA (20:47)
[2024-09-29 23:15] VITALS: PULSE 80
[2024-09-29] MEDS ORDERED: CEFDINIR300 MG PO (23:16)
[2024-09-29] MEDS ORDERED: PYRIDIUM200 MG PO (23:16)
[2024-09-29 23:30] VITALS: BP 152/71; PULSE 78; RESP 18; O2SAT 94
== END 2024-09-29 23:20 | disposition home or self-care (01) ==
LOC: ER 19:35
DX: R10.32 Left lower quadrant pain (principal); R10.31 Right lower quadrant pain; N39.0 Urinary tract infection, site not specified; E87.6 Hypokalemia; E11.65 Type 2 diabetes mellitus with hyperglycemia; I10 Essential (primary) hypertension; J44.9 Chronic obstructive pulmonary disease, unspecified; E78.5 Hyperlipidemia, unspecified; I50.9 Heart failure, unspecified; E03.9 Hypothyroidism, unspecified; D64.9 Anemia, unspecified; K21.9 Gastro-esophageal reflux disease without esophagitis; F41.9 Anxiety disorder, unspecified; F32.A Depression, unspecified; R94.31 Abnormal electrocardiogram [ECG] [EKG]
CPT/HCPCS: 36415; 74177; 80053; 81001; 83690; 84484; 85025; 87086; 93005; 99284; J2270; J2405; Q9967

== ENCOUNTER 2024-10-18 15:17 | Inpatient (IN) | payer MEDICARE ==
[~2024-10-18] VITALS: Ht 157.5 cm; Wt 79.4 kg
[~2024-10-18 15:17] MED LIST changes: +CEFDINIR300 MG PO; +PYRIDIUM200 MG PO
[2024-10-18 15:35] VITALS: PULSE 79; RESP 18; TEMP 98.4
[2024-10-18] MEDS ORDERED: ONDANSETRON HCL INJ 2MG/ML 2ML 2 MG/ML VIAL IV PRN (15:45)
[2024-10-18] MEDS ORDERED: SODIUM CHLORIDE FLUSH 10 ML SYR INJ PRN (15:45)
[2024-10-18 16:07] LABS: BASOPHILS # (AUTO) 0.1 (0.0-0.1); BASOPHILS % 0.8 % (0.0-1.0); EOSINOPHILS # (AUTO) 0.1 (0.0-0.4); EOSINOPHILS % 2.1 % (0.0-6.0); HEMATOCRIT 37.1 % (34.2-44.1); HEMOGLOBIN 12.1 g/dL (12.0-16.0); LYMPHOCYTES # (AUTO) 1.2 (1.0-3.2); MEAN CORPUSCULAR HEMOGLOBIN 30.3 pg (28-32); MEAN CORPUSCULAR HGB CONC 32.6 g/dL (31-35); MONOCYTES # (AUTO) 0.4 (0.2-0.8); MONOCYTES % 5.9 % (4.4-11.3); NEUTROPHILS # (AUTO) 4.4 (2.1-6.9); NEUTROPHILS % 71.9 % (38.7-80.0); PLATELET COUNT 198 x10e3/uL (140-360); RED BLOOD COUNT 3.99 x10e6/uL (3.6-5.1); RED CELL DISTRIBUTION WIDTH 14.1 % (11.7-14.4)
[2024-10-18 16:33] LABS: ALBUMIN 3.7 g/dL (3.5-5.0); ALBUMIN/GLOBULIN RATIO 1.2 (0.8-2.0); ANION GAP 17.9 mmol/L (8-16); BILIRUBIN,TOTAL 0.3 mg/dL (0.2-1.2); CALCIUM 9.3 mg/dL (8.4-10.2); CREATININE, SERUM 0.85 mg/dL (0.57-1.11); POTASSIUM 3.9 mmol/L (3.5-5.1); TOTAL PROTEIN 6.8 g/dL (6.5-8.1)
[2024-10-18] MEDS ORDERED: ASPIRIN81 MG PO (17:34)
[2024-10-18] MEDS ORDERED: SPIRONOLACTONE25 MG PO (17:34)
[2024-10-18] MEDS: MEROPENEM 1 GM in SODIUM CHLORIDE 0.9% 100 ML IV SCH (18:01)
[2024-10-18 19:31] VITALS: BP 172/77
[2024-10-18 19:50] VITALS: BP 160/64; PULSE 83; RESP 18; TEMP 98.6; O2SAT 96
[2024-10-18 20:00] VITALS: BP 160/64; PULSE 83; RESP 18; TEMP 98.6; O2SAT 96
[2024-10-18] MEDS: ACETAMINOPHEN 325 MG TAB PO PRN (23:11)
[2024-10-18 23:19] VITALS: BP 151/91; PULSE 80; RESP 18; TEMP 98.1; O2SAT 96
[2024-10-19 03:06] VITALS: BP 172/82; PULSE 63; RESP 18; TEMP 98.3; O2SAT 95
[2024-10-19 06:57] LABS: BASOPHILS # (AUTO) 0.1 (0.0-0.1); BASOPHILS % 1.1 % (0.0-1.0); EOSINOPHILS # (AUTO) 0.1 (0.0-0.4); EOSINOPHILS % 2.7 % (0.0-6.0); HEMATOCRIT 35.3 % (34.2-44.1); HEMOGLOBIN 11.4 g/dL (12.0-16.0); LYMPHOCYTES # (AUTO) 1.3 (1.0-3.2); MEAN CORPUSCULAR HEMOGLOBIN 30.3 pg (28-32); MEAN CORPUSCULAR HGB CONC 32.3 g/dL (31-35); MEAN CORPUSCULAR VOLUME 93.9 fL (81-99); MONOCYTES # (AUTO) 0.3 (0.2-0.8); MONOCYTES % 5.5 % (4.4-11.3); NEUTROPHILS # (AUTO) 3.4 (2.1-6.9); NEUTROPHILS % 65.1 % (38.7-80.0); PLATELET COUNT 219 x10e3/uL (140-360); RED BLOOD COUNT 3.76 x10e6/uL (3.6-5.1); RED CELL DISTRIBUTION WIDTH 14.2 % (11.7-14.4); WHITE BLOOD COUNT 5.25 x10e3/uL (4.8-10.8)
[2024-10-19 07:33] LABS: ALBUMIN 3.2 g/dL (3.5-5.0); ALBUMIN/GLOBULIN RATIO 1.2 (0.8-2.0); ANION GAP 12.4 mmol/L (8-16); BILIRUBIN,TOTAL 0.4 mg/dL (0.2-1.2); CALCIUM 8.7 mg/dL (8.4-10.2); CREATININE, SERUM 0.65 mg/dL (0.57-1.11); TOTAL PROTEIN 5.9 g/dL (6.5-8.1)
[2024-10-19 07:34] LABS: POTASSIUM 3.4 mmol/L (3.5-5.1)
[2024-10-19 08:43] VITALS: BP 182/81; PULSE 66; RESP 18; TEMP 97.9; O2SAT 97
[2024-10-19 09:00] VITALS: BP 182/81; PULSE 66; RESP 18; TEMP 97.9; O2SAT 97
[2024-10-19] MEDS ORDERED: OLMESARTAN MEDOXOMIL 5 MG TABLET PO SCH (09:00)
[2024-10-19] MEDS: SPIRONOLACTONE 25 MG TAB PO SCH (09:38)
[2024-10-19] MEDS: OLMESARTAN 20 MG TAB PO SCH (09:39)
[2024-10-19] MEDS: MONTELUKAST SODIUM 10 MG TAB PO SCH (09:40)
[2024-10-19] MEDS: PRIMIDONE 50 MG TAB PO SCH (09:40)
[2024-10-19] MEDS: GABAPENTIN 100 MG CAP PO SCH (09:41)
[2024-10-19] MEDS: METFORMIN HCL 500 MG TAB PO SCH (09:41)
[2024-10-19] MEDS: ASPIRIN 81 MG CHEW TAB PO SCH (09:41)
[2024-10-19] MEDS: OMEPRAZOLE 20 MG CAP PO SCH (09:42)
[2024-10-19 12:06] VITALS: BP 166/76; PULSE 76; RESP 18; TEMP 98.2; O2SAT 96
[2024-10-19] MEDS: INSULIN LISPRO 100 UNIT/1 ML 3ML VIAL SQ SCH (12:39)
[2024-10-19 16:46] VITALS: BP 172/56; PULSE 73; RESP 18; TEMP 98.1; O2SAT 98
[2024-10-19 20:00] VITALS: BP 148/57; PULSE 72; RESP 19; TEMP 97.2; O2SAT 96
[2024-10-19] MEDS: MIRTAZAPINE 15 MG TAB PO SCH (20:40)
[2024-10-20] VITALS (7 sets, daily range): BP systolic 154–179; BP diastolic 59–80; PULSE 65–68; RESP 18–20; TEMP 97.4–98; O2SAT 96–100
[2024-10-20] MEDS: LEVOTHYROXINE SODIUM 125 MCG TAB PO SCH (06:07)
[2024-10-20] MEDS: ALPRAZOLAM 0.5 MG TAB PO SCH (09:10)
[2024-10-20] MEDS: PRIMIDONE 50 MG TAB PO SCH (09:10)
[2024-10-20] MEDS: ENOXAPARIN SOD INJ 40 MG/0.4 ML SYR SC SCH (09:17)
[2024-10-20] MEDS: NIFEDIPINE CR 30 MG TAB PO SCH (12:22)
[2024-10-20] MEDS: DOXAZOSIN MESYLATE 2 MG TAB PO SCH (21:39)
[2024-10-21] VITALS (9 sets, daily range): BP systolic 134–187; BP diastolic 43–90; PULSE 67–77; RESP 18–20; TEMP 97.6–98.4; O2SAT 96–100
[2024-10-21] MEDS ORDERED: HYDRALAZINE HCL 20 MG/ML VIAL IV PRN (08:30)
[2024-10-21] MEDS ORDERED: DEXTROSE 50% SYRINGE 50 ML IV PRN (21:45)
[2024-10-21] MEDS: INSULIN LISPRO 100 UNIT/1 ML 3ML VIAL SQ SCH (21:55)
[2024-10-21] MEDS: ALPRAZOLAM 0.5 MG TAB PO SCH (21:57)
[2024-10-22] MEDS: SODIUM CHLORIDE 0.9% 250ML 250 ML ONE (00:41)
[2024-10-22 08:00] VITALS: BP 151/69; PULSE 69; RESP 18; TEMP 98.1; O2SAT 98
[2024-10-22 09:05] VITALS: BP 151/69; PULSE 69; RESP 18; TEMP 98.1; O2SAT 98
[2024-10-22 12:08] VITALS: BP 162/62; PULSE 67; RESP 18; TEMP 98.3; O2SAT 97
[2024-10-22] MEDS ORDERED: VITAMIN C1000 MG PO (15:46)
[2024-10-22 17:00] VITALS: BP 145/73; PULSE 67; RESP 18; TEMP 98.2; O2SAT 98
== END 2024-10-22 23:12 | disposition home or self-care (01) | DRG 690 ==
LOC: ER 15:38 → ERHOLD 15:41 → MED/SURG3 17:11
PROVIDERS: ADMIT Internal Medicine; ATTEND Internal Medicine
DX: N30.90 Cystitis, unspecified without hematuria (principal); I11.0 Hypertensive heart disease with heart failure; I50.32 Chronic diastolic (congestive) heart failure; Z16.24 Resistance to multiple antibiotics; Z16.12 Extended spectrum beta lactamase (ESBL) resistance; E11.65 Type 2 diabetes mellitus with hyperglycemia; E78.5 Hyperlipidemia, unspecified; E03.9 Hypothyroidism, unspecified; I35.0 Nonrheumatic aortic (valve) stenosis; K21.9 Gastro-esophageal reflux disease without esophagitis; F32.A Depression, unspecified; F41.9 Anxiety disorder, unspecified; R26.89 Other abnormalities of gait and mobility; B96.20 Unspecified Escherichia coli [E. coli] as the cause of diseases classified elsewhere; Z79.4 Long term (current) use of insulin; Z79.51 Long term (current) use of inhaled steroids; Z79.84 Long term (current) use of oral hypoglycemic drugs; Z79.890 Hormone replacement therapy; Z86.73 Personal history of transient ischemic attack (TIA), and cerebral infarction without residual deficits; Z90.49 Acquired absence of other specified parts of digestive tract; Z90.710 Acquired absence of both cervix and uterus; Z88.0 Allergy status to penicillin; Z82.49 Family history of ischemic heart disease and other diseases of the circulatory system
CPT/HCPCS: 36415; 80053; 82948; 85025; 99283; J1650; J2185; J7050